=== PATIENT | male | born 1945 | race Caucasian/White ===

== ENCOUNTER 2022-10-19 12:52 | Outpatient (CLI) | payer MEDICARE, SELFPAY | END 2022-10-19 12:53 | disposition home or self-care (01) | LOC: NFLDUCREF 12:53 | PROVIDERS: PCP Family Medicine; Visit Provider Registered Nurse | DX: R19.7 Diarrhea, unspecified (principal) | CPT/HCPCS: 87493 ==

== ENCOUNTER 2023-12-14 08:43 | Outpatient (CLI) | payer MEDICARE, SELFPAY ==
--- OUTSIDE RECORDS SUMMARY | 2023-12-14 08:47 | XMS_ITS | Encounter Summary ---
[facility] Address [address] [place] [address] Care Team Providers Care Yard Laborer Name Role Phone No Primary/Referring, Phy Primary Care Provider Unavailable Encounter Details Date Type Department Care Team (Latest Contact Info) Description 11/07/2011 Correspondence None Inactive, Provider ABN Social History Tobacco Use Types Packs/Day Years Used Date Smoking Tobacco: Never Assessed Sex and Gender Information Value Date Recorded Sex Assigned at Not on file Gender Identity Not on file Sexual Orientation Not on file documented as of this encounter Progress Notes * Inactive, Provider - 11/07/2011 12:00 AM CDT documented in this encounter Plan of Treatment Not on file documented as of this encounter Visit Diagnoses Not on filedocumented in this encounter Care Teams Yard Laborer Relationship Specialty Start Date End Date No Primary/Referring, Phy PCP - General 02/27/14 documented as of this encounter
--- OUTSIDE RECORDS SUMMARY | 2023-12-14 08:47 | XMS_ITS | Data Portability ---
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 [email or web address] Not available 09/03/2022 12:02:03 10/26/2022 10/26/2022 This is a 76 year old male who is here for the evaluation and management of benign prostatic hyperplasia with lower urinary tract symptoms. [email or web address] Not available 10/26/2022 11:40:32 12/30/2022 12/30/2022 This is a 76 year old male who is here for the evaluation and management of benign prostatic hyperplasia with lower urinary tract symptoms. [email or web address] Not available 12/30/2022 09:22:14 Plan of Treatment Reminders Order Date Submit Date Provider Last Modified By Organization Details Last Modified Time Details Appointments None recorded. Lab urinalysis, dipstick 2022 023 [facility], [address], [address], [address], 12:32:19 urinalysis, dipstick 2022 023 [facility], [address], [address], [place], [address], 3 11:21:18 urinalysis, dipstick 2022 023 [facility], [address], [address], [place], [address], 3 09:18:11 Referral None recorded. Procedures None recorded. Surgeries None recorded. Imaging None recorded. Medication Orders doxazosin ER 4 mg tablet,exte nded release 24 hr 2022 023 [facility] #[id number], [address] [place], [address], 3 11:17:25 finasteride 5 mg tablet 2022 023 [id number]/Pharmacy #[id number], [address] [place], [address], 3 13:56:17 Patient TargetsNo targets recorded. Patient Instructions Encounter Date Encounter Id Patient Instructions Last Modified By Organization Details Last Modified Time 09/03/2022 [id number] benign prostatic hyperplasia with lower urinary tract symptoms: - We discussed trying a different medication for BPH, and he is open to trying this in hopes it can prevent a future procedure - Rx sent to pharmacy for Doxazosin ER 4 mg. Side effects were discussed in detail. Potential side effects include retrograde ejaculation - I will see him back in 4-6 weeks for a medication check - We discussed lifestyle modifications to improve bladder health: 1. Avoiding bladder irritants such as spicy food, caffeine, and alcohol 2. Drinking enough water to stay hydrated, but to not drink in excess of this 3. Manage any existing constipation. 4. Voiding on a schedule of about every 3 hours 5. Fluid restriction 2-3 hours before bed iván Not available 09/03/2022 12:52:39 10/26/2022 [id number] benign prostatic hyperplasia with lower urinary tract symptoms: - He will resume tamsulosin. reviewed potential side effects with him. Potential side effects include retrograde ejaculation, intraoperative floppy iris syndrome, dizziness, rhinitis. - We reviewed lifestyle modifications to improve bladder health: 1. Avoiding bladder irritants such as spicy food, caffeine, and alcohol 2. Drinking enough water to stay hydrated, but to not drink in excess of this 3. Manage any existing constipation. 4. Voiding on a schedule of about every 3 hours 5. Fluid restriction 2-3 hours before bed - He would also like to consider adjunct medication to take with the tamsulosin. We discussed starting finasteride 5 mg daily. Potential side effects include abnormal ejaculation, decreased ejaculatory volume, fatigue. I have recommended that he resume tamsulosin, and after two weeks, he can start this medication. He expresses understanding - I will see back in 1 month iván Not available 10/26/2022 11:42:48 12/30/2022 [id number] benign prostatic hyperplasia with lower urinary tract symptoms: - We discussed his options of continuing on current plan and giving the finasteride more time to work, starting an OAB medication to help with urgency, vs. possible prostate procedure - He would like to give his current medication more time to work, which I think is reasonable - Will check his urine today to ensure he does not have an infection due to his worsening urgency - We discussed lifestyle modifications to improve bladder health: 1. Avoiding bladder irritants such as spicy food, caffeine, and alcohol 2. Drinking enough water to stay hydrated, but to not drink in excess of this 3. Manage any existing constipation. 4. Voiding on a schedule of about every 3 hours 5. Fluid restriction 2-3 hours before bed - I will see him back in 4 months to see how his symptoms are doing. If he continues to struggle with urgency, we can reconsider OAB medication [email or web address] Not available 12/30/2022 09:24:02 Reason for Referral None Reported. Results Created Date Observation Date Name Description Value Unit Range Abnormal Flag LastModifiedBy Organization Detail LastModifiedTime 09/04/1909/03/2022 UA DIP CS STATU S color -advantus YELLOW yellow Not Available [facility] [address] [facility] [address], [place], [address], 09/03/2022 12:32:19 09/04/19 23 09/03/2022 UA DIP CS STATU S appearance -advantus CLEAR clear Not Available [facility] [address] [facility] [address], [place], [address], 09/03/2022 12:32:19 09/04/19 23 09/03/2022 UA DIP CS STATU S glucose -advantus NEGATI VE mg/dL negati ve Not Available [facility] [address] [facility] [address], [place], [address], 09/03/2022 12:32:19 09/04/19 23 09/03/2022 UA DIP CS STATU S bilirubin -advantus NEGATI VE negati ve Not Available [facility] [address] [facility] [address], [place], [address], 09/03/2022 12:32:19 09/04/19 23 09/03/2022 UA DIP CS STATU S ketones -advantus NEGATI VE mg/dL negati ve Not Available [facility] [address] [place] [address] [address], [place], [address], 09/03/2022 12:32:19 09/04/19 23 09/03/2022 UA DIP CS STATU S sp. gravity -advantus 1.020 1.010- 1.025 Not Available [facility] [address] [facility] [address], [place], [address], 09/03/2022 12:32:19 09/04/19 23 09/03/2022 UA DIP CS STATU S pH -advantus 7.0 5.0-8. 0 Not Available [facility] [address] [facility] [address], [place], [address], 09/03/2022 12:32:19 09/04/19 23 09/03/2022 UA DIP CS STATU S protein -advantus NEGATI VE mg/dL negati ve Not Available [facility] [address] [facility] [address], [place], [address], 09/03/2022 12:32:19 09/04/19 23 09/03/2022 UA DIP CS STATU S urobilinogen -advantus 0.2 0.2 E.U./d L Not Available [facility] [address] [facility] [address], [place], [address], 09/03/2022 12:32:19 09/04/19 23 09/03/2022 UA DIP CS STATU S nitrites -advantus NEGATI VE negati ve Not Available [facility] [address] [place] [address] [address], [place], [address], 09/03/2022 12:32:19 09/04/19 23 09/03/2022 UA DIP CS STATU S blood -advantus NEGATI VE negati ve Not Available [facility] [address] [place] [address] [address], [place], [address], 09/03/2022 12:32:19 09/04/19 23 09/03/2022 UA DIP CS STATU S leukocytes -advantus NEGATI VE negati ve Not Available [facility] [address] [place] [address] [address], [place], [address], 09/03/2022 12:32:19 09/04/19 23 09/03/2022 UA DIP CS STATU S performed by DEYVI Jose Not Available [email or web address] [address] [place] [address] [address], [place], [address], 09/03/2022 12:32:19 09/04/19 23 09/03/2022 UA DIP CS STATU S total urine volume (mL) 85 /mL Not Available [facility] [address] [place] [address] [address], [place], [address], 09/03/2022 12:32:19 10/27/19 23 10/26/2022 UA WITHO UT MICRO - CS URISC AN blood - uriscan NEGATI VE negati ve Not Available [facility] [address] [place] [address] [address], [place], [address], 10/26/2022 11:21:18 10/27/19 23 10/26/2022 UA WITHO UT MICRO - CS URISC AN bilirubin - uriscan NEGATI VE mg/dL negati ve Not Available [facility] [address] [facility] [address], [place], [address], 10/26/2022 11:21:18 10/27/19 23 10/26/2022 UA WITHO UT MICRO - CS URISC AN urobilinogen - uriscan NORMAL mg/dL normal Not Available [facility] [address] [place] [address] [address], [place], [address], 10/26/2022 11:21:18 10/27/19 23 10/26/2022 UA WITHO UT MICRO - CS URISC AN ketones - uriscan NEGATI VE mg/dL negati ve Not Available [facility] [address] [place] [address] [address], [place], [address], 10/26/2022 11:21:18 10/27/19 23 10/26/2022 UA WITHO UT MICRO - CS URISC AN protein - uriscan NEGATI VE mg/dL negati ve Not Available [facility] [address] [place] [address] [address], [place], [address], 10/26/2022 11:21:18 10/27/19 23 10/26/2022 UA WITHO UT MICRO - CS URISC AN nitrites - uriscan NEGATI VE negati ve Not Available [facility] [address] [place] [address], [place], [address], 10/26/2022 11:21:18 10/27/19 23 10/26/2022 UA WITHO UT MICRO - CS URISC AN glucose - uriscan NEGATI VE mg/dL negati ve Not Available [facility] [address] [place] [address] [address], [place], [address], 10/26/2022 11:21:18 10/27/19 23 10/26/2022 UA WITHO UT MICRO - CS URISC AN pH - uriscan 5.50 5.00-9 .00 Not Available [facility] [address] [facility] [address], [place], [address], 10/26/2022 11:21:18 10/27/19 23 10/26/2022 UA WITHO UT MICRO - CS URISC AN sp. gravity - uriscan 1.03 1.01-1 .03 Not Available [facility] [address] [place] [address] [address], [place], [address], 10/26/2022 11:21:18 10/27/19 23 10/26/2022 UA WITHO UT MICRO - CS URISC AN leukocytes - uriscan NEGATI VE negati ve Not Available [facility] [address] [place] [address] [address], [place], [address], 10/26/2022 11:21:18 10/27/19 23 10/26/2022 UA WITHO UT MICRO - CS URISC AN color - uriscan YELLOW Not Available [facility] [address] [place] [address] [address], [place], [address], 10/26/2022 11:21:18 10/27/19 23 10/26/2022 UA WITHO UT MICRO - CS URISC AN clarity - uriscan CLEAR Not Available [facility] [address] [place] [address] [address], [place], [address], 10/26/2022 11:21:18 10/27/19 23 10/26/2022 UA WITHO UT MICRO - CS URISC AN total urine volume (mL) 40 /mL Not Available [facility] [address] [place] [address] [address], [place], [address], 10/26/2022 11:21:18 12/31/19 23 12/30/2022 UA WITHO UT MICRO - CS URISC AN blood - uriscan NEGATI VE negati ve Not Available [facility] [address] [place] [address] [address], [place], [address], 12/30/2022 09:18:10 12/31/19 23 12/30/2022 UA WITHO UT MICRO - CS URISC AN bilirubin - uriscan NEGATI VE mg/dL negati ve Not Available [facility] [address] [facility] [address], [place], [address], 12/30/2022 09:18:10 12/31/19 23 12/30/2022 UA WITHO UT MICRO - CS URISC AN urobilinogen - uriscan NORMAL mg/dL normal Not Available [facility] [address] [facility] [address], [place], [address], 12/30/2022 09:18:10 12/31/19 23 12/30/2022 UA WITHO UT MICRO - CS URISC AN ketones - uriscan NEGATI VE mg/dL negati ve Not Available [facility] [address] [facility] [address], [place], [address], 12/30/2022 09:18:10 12/31/19 23 12/30/2022 UA WITHO UT MICRO - CS URISC AN protein - uriscan NEGATI VE mg/dL negati ve Not Available [facility] [address] [facility] [address], [place], [address], 12/30/2022 09:18:10 12/31/19 23 12/30/2022 UA WITHO UT MICRO - CS URISC AN nitrites - uriscan NEGATI VE negati ve Not Available [facility] [address] [facility] [address], [place], [address], 12/30/2022 09:18:10 12/31/19 23 12/30/2022 UA WITHO UT MICRO - CS URISC AN glucose - uriscan NEGATI VE mg/dL negati ve Not Available [facility] [address] [facility] [address], [place], [address], 12/30/2022 09:18:10 07/12/12/30/2022 UA WITHO UT MICRO - CS URISC AN pH - uriscan 8.00 5.00-9 .00 Not Available [facility] [address] [place] [address] [address], [place], [address], 12/30/2022 09:18:10 12/31/19 23 12/30/2022 UA WITHO UT MICRO - CS URISC AN sp. gravity - uriscan 1.01 1.01-1 .03 Not Available [facility] [address] [place] [address], [place], [address], 12/30/2022 09:18:10 12/31/1912/30/2022 UA WITHO UT MICRO - CS URISC AN leukocytes - uriscan NEGATI VE negati ve Not Available [facility] [address] [place] [address], [place], [address], 12/30/2022 09:18:10 12/31/1912/30/2022 UA WITHO UT MICRO - CS URISC AN color - uriscan YELLOW lt. yellow ;yello w Not Available [facility] [address] [place] [address], [place], [address], 12/30/2022 09:18:10 12/31/1912/30/2022 UA WITHO UT MICRO - CS URISC AN clarity - uriscan CLEAR clear Not Available [facility] [address] [place] [address] [address], [place], [address], 12/30/2022 09:18:10 12/31/1912/30/2022 UA WITHO UT MICRO - CS URISC AN total urine volume (mL) 60 /mL Not Available [facility] [address] [place] [address] [address], [place], [address], 12/30/2022 09:18:10 Result Notes Documentation Provider Name and Address Organization Details Recorded Time Urinalysis, Dipstick : General Interpretation TOM Zavala [address] [facility] [address], [place], [address], [place] [facility] 10/26/2022 11:56:26 Problems No Known Problems Procedures Surgical History Date Name Laterality Status Provider Name and Address Organization Details Recorded Time 3 Bladder Scan completed Maryurila nena Watermanmey erickson [facility] 12/30/2022 09:03:17 3 Bladder Scan completed Karis Hardy erickson [facility] 10/26/2022 11:17:17 3 Bladder Scan completed Maryuri Cheo erickson [facility] 09/03/2022 11:50:07 Imaging Results None recorded. Procedure Notes None recorded. Medical Equipment None Reported. Allergies Allergen ID Allergen Name Allergen Category Reaction Reaction Severity Criticality Documentation Date Start Date Code Code System Note Provider Name and Address Organization Details Recorded Time 290795 doxazosin medicatio n diarrhea severe Not available 10/26/2022 73261 RxNorm Not Available [facility] 14:39:13 Medications Name Sig Start Date Stop Date Status Note LastModified by Organization Details LastModified Time tamsulosi n 0.4 mg capsule TAKE 1 CAPSULE (0.4 MG) BY MOUTH ONCE DAILY AFTER A MEAL. 09/03 completed HN: Patient reports no longer taking Not Available Not Available Not Available doxazosin 4 mg tablet TAKE 1 TABLET BY MOUTH EVERY DAY active Not Available Not Available No t Available finasteri de 5 mg tablet TAKE 1 TABLET BY MOUTH EVERY DAY active Not Available Not Available No t Available Restasis 0.05 % eye drops in a dropperet te active Not Available Not Available Not Available doxazosin ER 4 mg tablet,ex tended release 24 hr Take 1 tablet every day by oral route. 10/26 completed Not Available Not Available Not Available silodosin 8 mg capsule active Not Available Not Available Not Available Xiidra 5 % eye drops in a dropperet te active Not Available Not Available Not Available Vitals Date Recorded Body mass index (BMI) Body height Provider Name and Address Organization Details Last Updated DateTime 09/03/2022 19.9 kg/m2 175.26 cm Not Available Health Note 11:30:50 Date Recorded Body weight Provider Name an d Address Organization Details Last Updated DateTime 09/03/2022 21688.97 g Maryuri Grider [facility] 09/03/2022 11:42:57 Date Recorded Body height Body mass index (BMI) Body weight Provider Name and Address Organization Details Last Updated DateTime 10/26/2022 175.26 cm 34.7 kg/m2 358418.21 g Karis Dash [facility] 10/26/2022 11:14:16 Date Recorded Body weight Provider Name an d Address Organization Details Last Updated DateTime 12/30/2022 147960.61 anjali Grider [facility] 12/30/2022 08:54:31 Date Recorded Body height Body mass index (BMI) Provider Name and Address Organization Details Last Updated DateTime 12/30/2022 175.26 cm 34.6 kg/m2 Not Available Health Note 08:48:42 Social History Question Answer Notes LastModified by Organizat ion Details LastModified Time Tobacco Smoking Status Former Smoker Not Available Health Note 12/26/2022 13:56:14 What Is Your Level Of Alcohol Consumption? Occasional [email or web address] Information not available 12/26/2022 What Is Your Level Of Caffeine Consumption? Moderate [email or web address] Information not available 12/26/2022 How Much Tobacco Do You Chew? None [email or web address] Information not available 12/26/2022 Are You Currently Employed? No Information not available 09/03/2022 Do You Or Have You Ever Used E-cigarettes Or Vape? Never Used Electronic Cigarettes [email or web address] Information not available 12/26/2022 When Did You Quit Smoking? 16+yearssincel astcigarette Information not available 12/29/2022 Race White Information no t available 09/03/2022 Ethnicity Not /Latin o Information not available 09/03/2022 Preferred Language Mongolian Information not available 09/03/2022 Recreational Drug Use No Information not available 09/03/2022 Could You Be ? No Information not available 09/03/2022 What Was The Date Of Your Most Recent Tobacco Screening? 12/30/2022 [email or web address] Information not available 12/26/2022 Have You Ever Been Counseled For Unhealthy Alcohol Use? No Information not available 12/29/2022 What Is Your Relationship Status? [email or web address] Information not available 12/26/2022 Are You Sexually Active? No [email or web address] Information not available 12/26/2022 Do You Or Have You Ever Used Smokeless Tobacco? Never Used Smokeless Tobacco [email or web address] Information not available 12/26/2022 Do You Use Any Illicit Or Recreational Drugs? No [email or web address] Information not available 12/26/2022 Has Tobacco Cessation Counseling Been Provided? No Information not available 09/03/2022 How Many Years Have You Smoked Tobacco? 20 [email or web address] Information not available 12/26/2022 Do You Or Have You Ever Used Any Other Forms Of Tobacco Or Nicotine? No Information not available 09/03/2022 How Many Days In The Past Year Have You Consumed 5 Or More Drinks? 0 [email or web address] Information no t available 12/26/2022 Sex: Unknown Functional Status None recorded. Mental Status None recorded. Family History Relationship Description Onset Age of this Age Resolved Age Notes Father No current problems or disability Mother No current problems or disability Medical History Condition Response Other N High Blood Pressure N Kidney Stones N Lung Disease N Depression N GERD/Acid Reflux N Sexually Transmitted Infection N Cancer N High Cholesterol N Diabetes N Bleeding Disorder N Heart Disease N Immunizations Vaccine Type Date Status Provider Name and Address Organization Details Recorded Time SARS-COV-2 (COVID-19) vaccine, UNSPECIFIED 08/19/2021 completed Maryuri erickson [facility] 12/30/2022 08:54:36 SARS-COV-2 (COVID-19) vaccine, UNSPECIFIED 06/21/2021 [facility] 12/30/2022 08:54:36 Past Encounters Encounter ID Performer Location Encounter Start Date Encounter Closed Date Diagnosis/Indication Diagnosis SNOMED-CT Code [id number] TOM Gentile [address] [address] 09/03/2022 11:30:29 09/03/2022 13:48:53 Lower urinary tract symptoms due to benign prostatic hypertrophy [id number] TOM Gentile [address] [facility] [place] [address] 10/26/2022 11:07:31 10/26/2022 11:43:53 Lower urinary tract symptoms due to benign prostatic hypertrophy [id number] TOM GentileRandolph dbury [address] [facility] [place] [address] 12/30/2022 08:47:29 12/30/2022 09:25:20 Lower urinary tract symptoms due to benign prostatic hypertrophy [id number] Health Concerns Section Related Observation LastModified by Organization Detai ls LastModified Time None Recorded Concern Status LastModified by Organization Details LastModified Time None Recorded Advance Directives Directive None Recorded Payers Encounter Date Sequence Insurance Name Policy Number Policy Luis Covered Member ID Luis Member ID Guarantor Name 09/03/2022 1 [employer] (MEDICARE REPLACEMENT PPO) [id number] Geo Ashtonmarcella [id number] Geo Barrera 10/26/2022 1 [employer] (MEDICARE REPLACEMENT PPO) [id number] Geo Barrera [id number] Geo Barrera 12/30/2022 1 [employer] (MEDICARE REPLACEMENT PPO) [id number] Geo Barrera [id number] Geo Barrera Notes Date Note Type Note Provider Name and Address Organization Details Recorded Time 09/03/2022 text/html HPI Notes: This is a 76 year old male who is here for the evaluation and management of benign prostatic hyperplasia with lower urinary tract symptoms. Symptoms have been present for several years, worsening over the last year His most bothersome symptom is slow stream and urinary frequency He denies gross hematuria. There is not history of recurrent urinary tract infections. There is not history of urinary retention. Current medical therapy includes nothing Previously on tamsulosin 0.4mg daily, he stopped this since it was not helping. His symptoms have not changed without it He is participating in prostate cancer screening. His most recent PSA was 2.65 ng/mL (09/12/2021) There is not family history of prostate cancer. TOM Zavala [address] [place] [address],[address], [place], [address], [facility] 09/03/2022 12:52:52 10/26/2022 text/html HPI Notes: This is a 76 year old male who is here for the evaluation and management of benign prostatic hyperplasia with lower urinary tract symptoms. Symptoms have been present for several years, worsening over the last year His most bothersome symptom is slow stream and urinary frequency He denies gross hematuria. There is not history of recurrent urinary tract infections. There is not history of urinary retention. Current medical therapy includes doxazosin, which he was started on at his last appointment. He experienced diarrhea with this, so discontinued. Previously on tamsulosin 0.4mg daily, he stopped prior to our last appointment since he did not see a benefit. He states that looking back, this medication did help, and would like to resume it He is participating in prostate cancer screening. His most recent PSA was 2.65 ng/mL (09/12/2021) There is not family history of prostate cancer. TOM Zavala [address] [place] [address],[address], [address], [facility] 10/26/2022 11:43:03 12/30/2022 text/html HPI Notes: This is a 76 year old male who is here for the evaluation and management of benign prostatic hyperplasia with lower urinary tract symptoms. Symptoms have been present for several years, worsening over the last year His most bothersome symptom is slow stream and urinary frequency He denies gross hematuria. There is not history of recurrent urinary tract infections. There is not history of urinary retention. Current medical therapy includes tamsulosin 0.4 mg daily, and finasteride 5 mg daily, started at his last appointment States his stream is stronger, but he has been struggling with urgency He is participating in prostate cancer screening. His most recent PSA was 2.65 ng/mL (09/12/2021) There is not family history of prostate cancer. TOM Zavala [address] [place] [address],[address], [id number], [facility] 12/30/2022 09:24:22
--- OUTSIDE RECORDS SUMMARY | 2023-12-14 08:47 | XMS_ITS | Clinical Summary ---
Author Organization [email or web address] [facility] Address [place], [place] [address] Care Team Providers Care Maternity Floor Supervisor Name Role Phone Gretchen Oneal DO Primary Care Provider [phone] Allergies Active Allergy Reactions Criticality Noted Date Comments Diphtheria-Tetanus Toxoids Ped Other - Describe In Comment Field 11/12/2011 Numbness Doxazosin Diarrhea High 10/21/2023 Medications Medication Sig Dispensed Refills Start Date End Date Status meloxicam 15 mg tabletIndications :Hip pain, right Take 1 Tablet (15 mg) by mouth once daily. 30 Tablet 10/21/2023 11/20/2023 Additional Information Patient not taking.Reported on 11/02/2023 Active Problems Problem Noted Date Diagnosed Date Low back pain 09/12/2021 Spondylolisthesis at L4-L5 level 07/15/2020 Benign localized hyperplasia of prostate 019 Mild chronic obstructive pulmonary disease 01/09 Overview: Disease Lung Obstructive Chronic (COPD) Mild Erectile dysfunction 01/09/2015 Obesity, 11/19/2011 vitamin D deficiency 11/12/2011 Low testosterone 11/12/2011 Decreased libido 08/10/2011 Routine health maintenance 08/10/2011 Encounters Date Type Department Care Team Description 12/14/2023 Travel 12/03/2023 9:05 AM CDT Office Visit [address] [address] John Alas MD Musculoskeletal Problem (Follow-up Lumbar Spine MRI) 12/03/2023 Travel 11/30/2023 Telephone [facility] [address] [place] [address] John Alas MD Results (MRI back ) 11/25/2023 7:15 AM CDT Ancillary Procedure [facility] [address] [place] [address] 11/25/2023 Travel 11/08/2023 Nurse Triage [facility] [address] [place] [address] John Alas MD Back Pain 11/03/2023 7:30 AM CDT Procedure Only [address] [address] Lacey Ahmadi L Ac Acupuncture (Initial treatment.) 11/02/2023 7:45 AM CDT Ancillary Procedure [address] [address] 11/02/2023 7:30 AM CDT Ancillary Procedure [address] [address] 11/02/2023 7:00 AM CDT Office Visit [address] [address] John Alas MD Musculoskeletal Problem (Follow-up Low Back Pain on RIGHT side) 11/02/2023 Travel 10/26/2023 1:25 PM CDT Office Visit [address] [address] John Alas MD Musculoskeletal Problem (Consultation RIGHT Hip pain x 2 years getting gradually worse) 10/26/2023 Travel 10/21/2023 2:30 PM CDT Ancillary Procedure [address] [address] 10/21/2023 2:05 PM CDT Office Visit [address] [address] Gretchen Oneal, Hip Pain/problem (X2 years - RIGHT hip - hurting more - using aleve in AM and PM ) 10/21/2023 Travel from Last 3 Months Immunizations Name Administration Dates Next Due Influenza, High-dose Inactivated 020,03/24/2019,04/22/2018,2016,04/25/2015 Influenza, High-dose Quadriv alent Inactivated 03/26/2022,04/10/2021 Pneumococcal Poly,23-Valent (Pneumovax) 04/27/2013,04/27/2005 Pneumococcal conj 13-Valent (Prevnar 13) 04/25/2015 Zoster (Shingrix-RZV, recombinant) 05/29/2019, Family History Medical History Relation Name Comments Lung cancer Brother 1 Heart attack Brother 2 Lung cancer Father Alzheimer's disease Mother Relation Name Status Comments Brother 1 Brother 2 Father Mother Sister Social History Tobacco Use Types Packs/Day Years Used Date Smoking Tobacco: Never Smokeless Tobacco: Never Tobacco Cessation:Counseling Given: Yes Alcohol Use Standard Drinks/Week Comments Yes 0 (1 standard drink = 0.6 oz pur e alcohol) PHQ-2 Answer Date Recorded PHQ-2 TOTAL SCORE 0 09/12/2021 Social Connections Answer Date Recorded Frequency of Communication with Friends and Fami ly 0 10/21/2023 Financial Resource Strain Answer Date R ecorded Difficulty of Paying Living Expenses 3 10/21/2023 Difficulty of Paying Living Expenses Not on file 10/21/2023 Food Insecurity Answer Date Recorded Worried About Running Out of Food in the Last Ye ar 1 10/21/2023 Transportation Needs Answer Date Record ed Lack of Transportation (Medical) 1 10/21/2023 Housing Stability Answer Date Recorded Unable to Pay for Housing in the Last Year 1 10/21/2023 Sex and Gender Information Value Date Recorded Sex Assigned at Not on file Gender Identity Not on file Sexual Orientation Not on file Obstetrics History Last Filed Vital Signs Vital Sign Reading Time Taken Comments Blood Pressure 157/78 12/03/2023 9:42 AM CDT Pulse 69 12/03/2023 9:42 AM CDT Temperature 36.6 ??C (97.8 ??F) 10/03/2020 7:45 AM CD T Respiratory Rate 14 08/17/2023 8:55 AM CRNP Oxygen Saturation 95% 12/03/2023 9:42 AM CDT Inhaled Oxygen Concentration - - Weight 111.7 kg (246 lb 3.2 oz) 12/03/2023 8:55 AM CDT Height 173.5 cm (5' 8.31) 10/21/2023 2:05 PM CD T Body Mass Index 37.1 10/21/2023 2:05 PM CDT Plan of Treatment Upcoming Encounters Date Type Department Care Team (Late st Contact Info) Description 12/14/2023 9:40 AM CDT Office Visit [facility] [address] [place] [address] Ciro Bynum MD [address] [place] [address] Arrived 01/11/2024 8:15 AM CDT Office Visit [facility] [address] [place] [address] John Alas MD [address] [place] [address] Health Maintenance Due Date Last Done Comments Medicare Wellness for age 65+ 09/13/2022 09/12/2021, 11/19/2011 Depression screening for age 12+ 09/15/2022 09/15/2021, 09/12/2021, 08/12/2020 COVID-19 vaccine series ( season) 2023 05/23/2021, 09/14/2020, 08/24/2020 Influenza for age 65+ 02/20/2024 03/26/2022 , 04/10/2021, 03/28/2020, Additional history exists BMI (ht and wt on same day) for age 18+ 10/20/2024 10/21/2023, 10/23/2022, 09/12/2021 Pneumococcal series for age 65+ Completed 04/25/2015, 04/27/2013, 04/27/2005 Zoster (shingles) series for age 50+ Completed 05/29/2019, 03/27/2019 Tdap Discontinued Tetanus booster Discontinued Procedures Procedure Name Priority Date/Time Associated Diagnosis Comments AMB EPIDURAL STEROID INJECTION Routine 12/14/2023 8:21 AM CDT Chronic right-sided low back pain without sciatica MR SPINE LUMBAR WO Routine 11/25/2023 7: 51 AM CDT Right flank pain Chronic right-sided low back pain without sciatica XR SPINE THORACIC 3 VIEWS Routine 11/02/2023 7:44 AM CDT Right flank pain XR SPINE LUMBAR 2 VIEWS Routine 11/02/2023 7:44 AM CDT Right flank pain XR HIP 1 VIEW W PELVIS RIGHT Routine 10/21/2023 2:43 PM CDT Hip pain, right from Last 3 Months Results * MR SPINE LUMBAR WO (11/25/2023 7:51 AM CDT) Anatomical Region Laterality Modality Spine, LUMBAR SPINE Magnetic Res onance 11/25/2023 12:5 3 PM CDT Impressions 11/25/2023 12:53 PM CDT 1. Degenerative grade 1 anterolisthesis of L3 on L4 and L4 on L5. 2. Otherwise normal alignment. No fractures. 3. Lumbar spondylosis. 4. At L3-4, moderate to severe narrowing of the spinal canal. Potential impingement of the traversing L4 nerve roots. Mild narrowing of the bilateral neural foramina 5. At L4-5, left subarticular recess narrowing with potential impingement of the traversing left L5 nerve root. Moderate right and mild left neural foraminal narrowing. 6. At L5-S1, mild narrowing of the bilateral neural foramina Dictated by Bob Ortiz MD @ 11/25/2023 12:53:01 PM (Electronically Signed) Narrative 11/25/2023 12:53 PM CDT For Patients: ??As a result of the 21st Century Cures Act, medical imaging exams and procedure reports are released immediately into your electronic medical record. ??You may view this report before your referring provider. ??If you have questions, please contact your health care provider. INDICATION: Right flank pain. COMPARISON: 07/01/2020. TECHNIQUE: Sagittal T1, T2, and STIR sequences. Axial T1 and T2 weighted sequences. FINDINGS: Degenerative grade 1 anterolisthesis of L3 on L4 measures approximately 4 mm. Grade 1 anterolisthesis of L4 on L5 measures approximately 6 mm. No fractures. No vertebral body loss of height. No ligamentous injury. No suspicious osseous lesions. Normal conus terminates at L1. T12-L1 L1-2 L2-3: Disc degeneration. No narrowing of spinal canal. No neural foraminal narrowing. L3-4: Grade 1 anterolisthesis. Disc degeneration and posterior disc bulge. Combined with facet arthropathy, there is moderate severe narrowing of spinal canal. Bilateral subarticular recess narrowing and impingement of the traversing L4 nerve roots. Mild narrowing of the bilateral foramina. Mild facet arthropathy. Prominent bilateral facet joint effusions. L4-5: Grade 1 anterolisthesis. Disc degeneration and unroofed posterior disc bulge. No narrowing of the spinal canal. Focal narrowing of the left subarticular recess potential impingement of the traversing left L5 nerve root. Moderate right and mild left neural foraminal narrowing. L5-S1: Stable advanced disc degeneration. Diffuse disc bulge and endplate osteophytic ridging. No narrowing of the spinal canal. No impingement of the traversing S1 nerve roots. Mild narrowing of bilateral foramina. Degenerative changes of the SI joints. Procedure Note Bob Ortiz MD, PhD - 11/25/2023 For Patients: As a result of the Century Cures Act, medical imagingexams and procedure reports are released immediately into your electronicmedical record. You may view this report before your referring provider.If you have questions, please contact your health care provider. INDICATION: Right flank pain. COMPARISON: 07/01/2020. TECHNIQUE: Sagittal T1, T2, and STIR sequences. Axial T1 and T2 weighted sequences. FINDINGS: Degenerative grade 1 anterolisthesis of L3 on L4 measures approximately 4mm. Grade 1 anterolisthesis of L4 on L5 measures approximately 6 mm. Nofractures. No vertebral body loss of height. No ligamentous injury. Nosuspicious osseous lesions. Normal conus terminates at L1. T12-L1 L1-2 L2-3: Disc degeneration. No narrowing of spinal canal. Noneural foraminal narrowing. L3-4: Grade 1 anterolisthesis. Disc degeneration and posterior disc bulge.Combined with facet arthropathy, there is moderate severe narrowing ofspinal canal. Bilateral subarticular recess narrowing and impingement ofthe traversing L4 nerve roots. Mild narrowing of the bilateral foramina.Mild facet arthropathy. Prominent bilateral facet joint effusions. L4-5: Grade 1 anterolisthesis. Disc degeneration and unroofed posteriordisc bulge. No narrowing of the spinal canal. Focal narrowing of the leftsubarticular recess potential impingement of the traversing left L5 nerveroot. Moderate right and mild left neural foraminal narrowing. L5-S1: Stable advanced disc degeneration. Diffuse disc bulge and endplateosteophytic ridging. No narrowing of the spinal canal. No impingement ofthe traversing S1 nerve roots. Mild narrowing of bilateral foramina. Degenerative changes of the SI joints. IMPRESSION: 1. Degenerative grade 1 anterolisthesis of L3 on L4 and L4 on L5. 2. Otherwise normal alignment. No fractures. 3. Lumbar spondylosis. 4. At L3-4, moderate to severe narrowing of the spinal canal. Potentialimpingement of the traversing L4 nerve roots. Mild narrowing of thebilateral neural foramina 5. At L4-5, left subarticular recess narrowing with potential impingementof the traversing left L5 nerve root. Moderate right and mild left neuralforaminal narrowing. 6. At L5-S1, mild narrowing of the bilateral neural foramina Dictated by Bob Ortiz MD @ 11/25/2023 12:53:01 PM (Electronically Signed) John Alas MD MR * XR SPINE THORACIC 3 VIEWS (11/02/2023 7:44 AM CDT) Anatomical Region Laterality Modality Spine, THORACIC SPINE Computed R adiography 11/02/2023 3:19 PM CDT Impressions 11/02/2023 3:19 PM CDT Multilevel discogenic spurring. Dictated by Jesse Davis MD @ 11/02/2023 3:19:04 PM (Electronically Signed) Narrative 11/02/2023 3:19 PM CDT For Patients: ??As a result of the Century Cures Act, medical imaging exams and procedure reports are released immediately into your electronic medical record. ??You may view this report before your referring provider. ??If you have questions, please contact your health care provider. INDICATION: Right flank pain TECHNIQUE: 3-view thoracic spine. COMPARISON: none FINDINGS: Multilevel discogenic spurring throughout the lower thoracic spine. Slight rightward curvature. No fracture. No pleural effusion. Procedure Note Jesse Davis MD - 11/02/2023 For Patients: As a result of the Cures Act, medical imagingexams and procedure reports are released immediately into your electronicmedical record. You may view this report before your referring provider.If you have questions, please contact your health care provider. INDICATION: Right flank pain TECHNIQUE: 3-view thoracic spine. COMPARISON: none FINDINGS: Multilevel discogenic spurring throughout the lower thoracic spine. Slightrightward curvature. No fracture. No pleural effusion. IMPRESSION: Multilevel discogenic spurring. Dictated by Jesse Davis MD @ 11/02/2023 3:19:04 PM (Electronically Signed) John Alas MD GENERAL IMAGING * XR SPINE LUMBAR 2 VIEWS (11/02/2023 7:44 AM CDT) Anatomical Region Laterality Modality LUMBAR SPINE Computed Radiogr aphy 11/02/2023 3:09 PM CDT Impressions 11/02/2023 3:09 PM CDT Multilevel degenerative disc disease and facet degeneration L3 through S1 with degenerative spondylolisthesis of L3 on L4 and L4 on L5. Dictated by Jesse Davis MD @ 11/02/2023 3:09:44 PM (Electronically Signed) Narrative 11/02/2023 3:09 PM CDT For Patients: ??As a result of the Cures Act, medical imaging exams and procedure reports are released immediately into your electronic medical record. ??You may view this report before your referring provider. ??If you have questions, please contact your health care provider. INDICATION: Right flank pain TECHNIQUE: 2-view lumbar spine. COMPARISON: none FINDINGS: Grade 1 degenerative spondylolisthesis L3 on L4 and L4 on L5. No fracture. Facet degeneration mid and lower lumbar spine. Vascular calcifications. Mild leftward curvature lumbar spine. Disc space narrowing L3 through S1 Procedure Note Jesse Davis MD - 11/02/2023 For Patients: As a result of the Cures Act, medical imagingexams and procedure reports are released immediately into your electronicmedical record. You may view this report before your referring provider.If you have questions, please contact your health care provider. INDICATION: Right flank pain TECHNIQUE: 2-view lumbar spine. COMPARISON: none FINDINGS: Grade 1 degenerative spondylolisthesis L3 on L4 and L4 on L5. No fracture.Facet degeneration mid and lower lumbar spine. Vascular calcifications.Mild leftward curvature lumbar spine. Disc space narrowing L3 through S1 IMPRESSION: Multilevel degenerative disc disease and facet degeneration L3 through S1with degenerative spondylolisthesis of L3 on L4 and L4 on L5. Dictated by Jesse Davis MD @ 11/02/2023 3:09:44 PM (Electronically Signed) John Alas MD GENERAL IMAGING * XR HIP 1 VIEW W PELVIS RIGHT (10/21/2023 2:43 PM CDT) Anatomical Region Laterality Modality HIPS, HIPR, Pelvis Computed Radi ography 10/21/2023 3:50 PM CDT Narrative 10/21/2023 3:50 PM CDT For Patients: ??As a result of the Cures Act, medical imaging exams and procedure reports are released immediately into your electronic medical record. ??You may view this report before your referring provider. ??If you have questions, please contact your health care provider. Indication: Hip pain Technique: Pelvis and right hip 2 views Comparison: None Findings: Bilateral pelvic phleboliths. Spurring at the iliac crests. No fracture. Mild degenerative changes at both hips. Impression: Mild degenerative joint disease right hip. Dictated by Jesse Davis MD @ 10/21/2023 3:50:01 PM (Electronically Signed) Procedure Note Jesse Davis MD - 10/21/2023 For Patients: As a result of the s Act, medical imagingexams and procedure reports are released immediately into your electronicmedical record. You may view this report before your referring provider.If you have questions, please contact your health care provider. Indication: Hip pain Technique: Pelvis and right hip 2 views Comparison: None Findings: Bilateral pelvic phleboliths. Spurring at the iliac crests. No fracture.Mild degenerative changes at both hips. Impression: Mild degenerative joint disease right hip. Dictated by Jesse Davis MD @ 10/21/2023 3:50:01 PM (Electronically Signed) Gretchen Oneal DO GENERAL IMAGING from Last 3 Months Care Teams Maternity Floor Supervisor Relationship Specialty Start Date End Date Gretchen Oneal [place] [address] [address] PCP - General Family Practice 07/18/20
--- OUTSIDE RECORDS SUMMARY | 2023-12-14 08:47 | XMS_ITS | Clinical Summary ---
Author Organization [facility] Address [address], [place] [address] Care Team Providers Care Coal Pulverizing Operator Name Role Phone No Primary/Referring, Phy Primary Care Provider Unavailable Source Comments You are receiving this document as you are listed as the primary care provider,follow-up provider, or the patient has been referred to you for consultation.This is in compliance with the Medicare and[facility] EHR Incentive Program,which states Providers who transition their patient to another setting of careor provider of care or refers their patient to another provider of care shouldprovide summary care record for each transition of care or referral. [employer] Active Problems Problem Noted Date Diagnosed Date Nonallopathic lesion of thoracic region 02/28/20 14 Overview: Epic Spasm of muscle 02/27/2014 Resolved Problems Problem Noted Date Diagnosed Date Resolved Date Acute thoracic back pain 04/29/201702/2017 Immunizations Name Administration Dates Next Due Pfizer Monovalent 12+ Purple Top 09/14/2020,03/0 11/2020 Social History Tobacco Use Types Packs/Day Years Used Date Smoking Tobacco: Never Assessed Sex and Gender Information Value Date Recorded Sex Assigned at Not on file Gender Identity Not on file Sexual Orientation Not on file Last Filed Vital Signs Vital Sign Reading Time Taken Comments Blood Pressure 145/68 11/03/2011 11:50 AM CDT Pulse 65 11/03/2011 11:50 AM CDT Temperature - - Respiratory Rate - - Oxygen Saturation - - Inhaled Oxygen Concentration - - Weight - - Height - - Body Mass Index - - Plan of Treatment Health Maintenance Due Date Last Done Comments DTaP/Tdap/Td (1 - Tdap) 11/26/1964 COVID-19 Vaccine (2022-24 season) 2023 09/14/2020, 08/24/2020 Medicare Annual Wellness Visit 06/21/2023 Influenza (Season Ended) 2024 020, 03/24/2019, 04/22/2018, Additional history exists Pneumococcal 65+ Yrs Completed 04/25/2015, 04/27/2013, 04/27/2005 Zoster/Shingles Completed 05/29/2019, 03/27/2019 HepA Aged Out No longer eligi ble based on patient's age to complete this topic HepB Aged Out No longer eligi ble based on patient's age to complete this topic Hib Aged Out No longer eligi ble based on patient's age to complete this topic IPV (Polio) Aged Out No longer eligi ble based on patient's age to complete this topic MCV4 Aged Out No longer eligi ble based on patient's age to complete this topic Care Teams Coal Pulverizing Operator Relationship Specialty Start Date End Date No Primary/Referring, Phy PCP - General 02/27/14
== END 2023-12-14 08:44 | disposition home or self-care (01) ==
LOC: INJ CL 08:45
PROVIDERS: PCP Student in an Organized Health Care Education/Training Program; Visit Provider Family Medicine
DX: M54.16 Radiculopathy, lumbar region (principal); M51.36 Other intervertebral disc degeneration, lumbar region
CPT/HCPCS: 62323; Q9966

== ENCOUNTER 2024-04-25 09:03 | Outpatient (CLI) | payer MEDICARE, SELFPAY | END 2024-04-25 09:04 | disposition home or self-care (01) | LOC: INJ CL 09:04 | PROVIDERS: PCP Student in an Organized Health Care Education/Training Program; Visit Provider Family Medicine | DX: M54.16 Radiculopathy, lumbar region (principal); M51.360 Other intervertebral disc degeneration, lumbar region with discogenic back pain only | CPT/HCPCS: 62323; J0702; Q9966 ==

== ENCOUNTER 2025-01-09 12:49 | Outpatient (CLI) | payer MEDICARE, SELFPAY | END 2025-01-09 12:50 | disposition home or self-care (01) | LOC: INJ CL 12:53 | PROVIDERS: PCP Student in an Organized Health Care Education/Training Program; Visit Provider Family Medicine | DX: M54.16 Radiculopathy, lumbar region (principal); M51.360 Other intervertebral disc degeneration, lumbar region with discogenic back pain only | CPT/HCPCS: 62323; Q9966 ==

== ENCOUNTER 2025-06-16 09:53 | Inpatient (IN) | payer MEDICARE, SELFPAY ==
--- OUTSIDE RECORDS SUMMARY | 2012-07-19 10:15 | XMS_ITS | Continuity of Care Document ---
Author Organization [facility] Address [address] [address] [place] [address] Phone Care Team Providers Care Fusion Juncture Grinder Name Role Phone Unavailable Unavailable Unavailable Medications Medication Instructions Dosage Effective Dates (start - stop) Status Comments MiralaxBisacodylMagCit Colon Prep Use as directed - Active Advance Directives Directive Yes / No Effective Date File Name No Information Encounters Encounter Description Practice Location Reason(s) For Visit Diagnoses Date Provider Providers Copied on Encounter [facility] [employer] [place], [address] [address], [place], [place], [id number], tel:[phone] [facility] No Information No Information Referring Provider: Cachorro Villatoro, [address] [place], [address]. tel:[phone] [facility], [address] [address], [place], [place], [id number], tel:[phone] [facility] No Information No Information Referring Provider: Cachorro Villatoro, [address] [place], [address]. tel:[phone] Family History Family Member Type Diagnosis Age At Onset No Information Payers Payer name Insurance type Covered alliance party ID Authoriza tion(s) No Information Social History Type Description Quantity Date Captured Comments Sex Male Smoking Status No Information Chief Complaint And Reason For Visit No Information Reason For Referral Reason For Referral No Information History Of Present Illness Encounter Date Complaint History Of Prese nt Illness No Information Functional Status Date Functional Assessmen t No Information Instructions Date Instruction Additional Infor mation No Information Assessments Type Assessment Date No Information Patient Care Teams Name Effective Dates (start - stop) Status Members No Information
[2025-06-16] VITALS (29 sets, daily range): BP systolic 135–177; BP diastolic 74–91; PULSE 78–98; RESP 11–28; TEMP 36.4–37.4; O2SAT 83–94; BMI 37.3; BMI 37.9
--- OUTSIDE RECORDS SUMMARY | 2025-06-16 09:57 | XMS_ITS | Data Portability ---
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 mstassifritz Not available 09/03/2022 12:02:03 10/26/2022 10/26/2022 This is a 76 yea r old male who is here for the evaluation and management of benign prostatic hyperplasia with lower urinary tract symptoms. mstassifritzNot spurhfwid00/08/2023 11:40:3207This is a 76 year old male who is here for the evaluation and management of benign prostatic hyperplasia with lower urinary tract symptoms.mstassifritzNot available 12/30/2022 09:22:14 Plan of Treatment Reminders Order DateSubmit DateProviderLast Modified ByChristina DetailsLast Modified TimeDetailsAppointmentsNone recorded.Laburinalysis, epcefqzo17 [facility], [address] [facility], [place], [address], 79/05/2023 09:18:11urinalysis, wnanutqv19/08/2023 10/26/2022[facility], [address], [address], [place], [address], Ph [phone] 11:21:18urinalysis, dipstick [facility], [address], [address], [place], [address], Ph [phone] 12:32:19ReferralNone recorded.ProceduresNone recorded.SurgeriesNone recorded.ImagingNone recorded. Medication Ordersfinasteride 5 mg [id number], [address] [place], [address], 56 13:56:17doxazosin ER 4 mg tablet,extended release 24 hr/01/2023 [id number], [address] [place], [address], 16 11:17:25 Patient TargetsNo targets recorded. Patient Instructions Encounter Date Encounter Id Patient Instructions Last Modified By Organization Details Last Modified Time 09/03/2022 [id number] benign prostatic hyperplasia with lower urinary tract [...] bed iván Not available 09/03/2022 12:52:39 10/26/2022 [id number] benign prostatic hyperplasia with lower urinary tract [...] I will see back in 1 month nikkiifjose angel Not available 10/26/2022 11:42:48 12/30/2022 [id number] benign prostatic hyperplasia with lower urinary tract [...] with urgency, we can reconsider OAB medication mstassifritz Not available 12/30/2022 09:24:02 Reason for Referral None Reported. Results Created Date Observation Date Name Description Value Unit Range Abnormal Flag Note LastModifiedBy Organization Detail LastModifiedTime 09/03/2022 09/03/2022 UA DIP CS STATUS color -advantus VALERIE Adkins [facility] [address], [place], [address], 03/ 12:32:19 UA DIP CS STATUSappearance -advantusCLEARclearNot Available [facility] [address] [place] [address] [address], [place], [address], Ph [phone] 12:32:19 /UA DIP CS STATUSglucose -advantusNEGATIVEmg/dLnegativeNot Available[facility] [address] [place] [address] [address], [place], [address], Ph [phone] 12:32:19 /UA DIP CS STATUSbilirubin -advantusNEGATIVEnegativeNot Available[facility] [address] [place] [address], [place], [address], Ph [phone] 12:32:19 /UA DIP CS STATUSketones -advantusNEGATIVEmg/dLnegativeNot Available[facility] [address] [place] [address] [address], [place], [address], Ph [phone] 12:32:19 /UA DIP CS STATUSsp. gravity -advantus1.0201.010-1.025Not AvailableN[facility] [address] [place] [address] [address], [place], [address], Ph [phone] 12:32:19 /UA DIP CS STATUSpH -advantus7.05.0-8.0Not AvailableMary[facility] [address] [place] [address] [address], [place], [address], Ph [phone] 12:32:19 /UA DIP CS STATUSprotein -advantusNEGATIVEmg/dLnegativeNot AvailableMary[facility] [address] [place] [address] [address], [place], [address], Ph [phone] 12:32:19 /UA DIP CS STATUSurobilinogen -advantus0.20.2 E.U./dLNot AvailableMary[facility] [address] [place] [address], [place], [address], [address] 12:32:19 /UA DIP CS STATUSnitrites -advantusNEGATIVEnegativeNot Available[facility] [address] [place] [address], [place], [address], [address] 12:32:19 /UA DIP CS STATUSblood -advantusNEGATIVEnegativeNot Available [facility] [address] [place] [address], [place], [address], [address] 12:32:19 /UA DIP CS STATUSleukocytes -advantusNEGATIVEnegativeNot Available[facility] [address] [place] [address], [place], [address], [address] 12:32:19 UA DIP CS STATUSperformed byTOUA TNot AvailableN[facility] [address] [place] [address], [place], [address], [address] 12:32:19 UA DIP CS STATUStotal urine volume (mL)85/mL *Please note the following minimum quantities for additional urine testing: - Atypicals: 3 mL - Cytology: 20 mL - GC/CH: 2 mL - FISH: 30 mL - Atypicals w/ GC/CH: 5 mL - Cytology PLUS FISH: 50 mL - Urine Culture: 3 mL -------- This lab result is being provided to you and your provider at the same time in compliance with the Century Cures Act. Your provider may not have had time to review and make recommendations based on the result. Please allow up to one week for provider review.Not AvailableMinnesota [facility] [address] [address], [place], [address], Ph [phone] 12:32:19 UA WITHOUT MICRO - CS URISCANblood - uriscanNEGATIVEnegative Not AvailableMinnesota [facility] [address] [place] [address], [address], Ph [phone] 11:21:18 10/26/UA WITHOUT MICRO - CS URISCANbilirubin - uriscanNEGATIVE mg/dLnegativeNot AvailableMinnesota [facility] [address] [place] [address], [place], [address], Ph [phone] 11:21:18 UA WITHOUT MICRO - CS URISCANurobilinogen - uriscanNORMAL mg/dLnormalNot AvailableMinnesota [facility] [address] [place] [address], [place], [address], [address] 11:21:18 UA WITHOUT MICRO - CS URISCANketones - uriscanNEGATIVEmg/dL negativeNot AvailableMinn[facility] [address] [place] [address] [address], [place], [address], [address] 11:21:18 UA WITHOUT MICRO - CS URISCANprotein - uriscanNEGATIVEmg/dL negativeNot AvailableMinn[facility] [address] [facility] [address], [place], [address], Ph [phone] 11:21:18 10/26//01/2023UA WITHOUT MICRO - CS URISCANnitrites - uriscanNEGATIVE negativeNot AvailableMinnesota [facility] [address] [facility] [address], [place], [address], Ph [phone] 11:21:18 10/26//01/2023UA WITHOUT MICRO - CS URISCANglucose - uriscanNEGATIVEmg/dL negativeNot AvailableMinn[facility] [address] [facility] [address], [place], [address], Ph [phone] 11:21:18 10/26//01/2023UA WITHOUT MICRO - CS URISCANpH - uriscan5.505.00-9.00Not AvailableMinnesota [facility] [address] [place] [address] [address], [place], [address], Ph [phone] 11:21:18 10/26//01/2023UA WITHOUT MICRO - CS URISCANsp. gravity - uriscan1.03 1.01-1.03Not AvailableMinn[facility] [address] [place] [address] [address], [place], [address], Ph [phone] 11:21:18 10/26//01/2023UA WITHOUT MICRO - CS URISCANleukocytes - uriscanNEGATIVE negativeNot AvailableMinnesota [facility] [address] [facility] [address], [place], [address], Ph [phone] 11:21:18 10/26/UA WITHOUT MICRO - CS URISCANcolor - uriscanYELLOWNot AvailableMinnesota [facility] [address] [facility] [address], [place], [address], Ph [phone] 11:21:18 /01/2023UA WITHOUT MICRO - CS URISCANclarity - uriscanCLEARNot AvailableMinfriends [facility] [address] [facility] [address], [place], [address], [address] 11:21:18 UA WITHOUT MICRO - CS URISCANtotal urine volume (mL)40/mL *Please note the following minimum quantities for additional urine testing: - Atypicals: 3 mL - Cytology: 20 mL - GC/CH: 2 mL - FISH: 30 mL - Atypicals w/ GC/CH: 5 mL - Cytology PLUS FISH: 50 mL - Urine Culture: 3 mL -------- This lab result is being provided to you and your provider at the same time in compliance with the Century Cures Act. Your provider may not have had time to review and make recommendations based on the result. Please allow up to one week for provider review.Not AvailableM[facility]riends [facility] [address] [facility] [address], [place], [address], 25 11:21:18 UA WITHOUT MICRO - CS URISCANblood - uriscanNEGATIVEnegative Not AvailableMary[facility] [address] [facility] [address], [place], [address], [address] 09:18:10 UA WITHOUT MICRO - CS URISCANbilirubin - uriscanNEGATIVE mg/dLnegativeNot AvailableMinnesota [facility] [address] [facility] [address], [place], [address], Ph [phone] 09:18:10 12/30//05/2023UA WITHOUT MICRO - CS URISCANurobilinogen - uriscanNORMAL mg/dLnormalNot AvailableMinnesota [facility] [address] [facility] [address], [place], [address], Ph [phone] 09:18:10 /05/2023UA WITHOUT MICRO - CS URISCANketones - uriscanNEGATIVEmg/dL negativeNot AvailableMinn[facility] [address] [place] [address] [address], [place], [address], Ph [phone] 09:18:10 UA WITHOUT MICRO - CS URISCANprotein - uriscanNEGATIVEmg/dL negativeNot AvailableMinn[facility] [address] [place] [address] [address], [place], [address], Ph [phone] 09:18:10 12/30/UA WITHOUT MICRO - CS URISCANnitrites - uriscanNEGATIVE negativeNot AvailableMinnesota [facility] [address] [place] [address] [address], [place], [address], Ph [phone] 09:18:10 UA WITHOUT MICRO - CS URISCANglucose - uriscanNEGATIVEmg/dL negativeNot AvailableMinn[facility] [address] [place] [address] [address], [place], [address], Ph [phone] 09:18:10 /05/2023UA WITHOUT MICRO - CS URISCANpH - uriscan8.005.00-9.00Not AvailableMinnesota [facility] [address] [place] [address] [address], [place], [address], Ph [phone] 09:18:10 /05/2023UA WITHOUT MICRO - CS URISCANsp. gravity - uriscan1.01 1.01-1.03Not [facility] [address] [facility] [address], [place], [address], Ph [phone] 09:18:10 UA WITHOUT MICRO - CS URISCANleukocytes - uriscanNEGATIVE negativeNot [facility] [address] [facility] [address], [place], [address], Ph [phone] 09:18:10 UA WITHOUT MICRO - CS URISCANcolor - uriscanYELLOWlt. yellow;yellowNot [facility] [address] [place] [address], [place], [address], Ph [phone] 09:18:10 UA WITHOUT MICRO - CS URISCANclarity - uriscanCLEARclearNot [facility] [address] [place] [address], [place], [address], Ph [phone] 09:18:10 UA WITHOUT MICRO - CS URISCANtotal urine volume (mL)60/mL *Please note the following minimum quantities for additional urine testing: - Atypicals: 3 mL - Cytology: 20 mL - GC/CH: 2 mL - FISH: 30 mL - Atypicals w/ GC/CH: 5 mL - Cytology PLUS FISH: 50 mL - Urine Culture: 3 mL -------- This lab result is being provided to you and your provider at the same time in compliance with the 21st Century Cures Act. Your provider may not have had time to review and make recommendations based on the result. Please allow up to one week for provider review.Not AvailableMinnesota [facility] [address] [place] [address] [address], [place], [address], Ph [phone] 09:18:10 Result Notes Documentation Provider Name and Address Organization Details Recorded Time Urinalysis, Dipstick : General Interpretation TOM Zavala [address] [place], [place] [address], [place], [address], [facility] 10/26/2022 11:56:26 Problems No Known Problems Procedures Surgical History Date Name Laterality Status Provider Name and Address Organization Details Recorded Time 12/30/2022 [facility] 09:03:1705 [facility]completed[facility]/26/2022 11:17:17 09/03/2022[facility] 11:50:07 Imaging Results None recorded. Procedure Notes None recorded. Medical Equipment None Reported. Allergies Allergen ID Allergen Name Allergen Category Reaction Reaction Severity Criticality Documentation Date Start Date Code Code System Note Provider Name and Address Organization Details Recorded Time 668884 doxazosin medication diarrhea severe Not pmmuaxuob17/08/710551289MjBottZew SnzhehcdrEqcesgFqltnr09/29/2023 14:39:13 Medications Name Sig Start Date Stop Date Status Note LastModified by Organization Details LastModified Time tamsulosin 0.4 mg capsule TAKE 1 CAPSULE (0.4 MG) BY MOUTH ONCE DAILY AFTER A MEAL. 09/03/20227235yemavzyec9705-84-89 HN: Patient reports no longer takingNot Available Not AvailableNot Availabledoxazosin 4 mg tabletTAKE 1 TABLET BY MOUTH EVERY DAY activeNot AvailableNot AvailableNot Availablefinasteride 5 mg tabletTAKE 1 TABLET BY MOUTH EVERY DAYactiveNot AvailableNot AvailableNot AvailableRestasis 0.05 % eye drops in a dropperetteactiveNot AvailableNot AvailableNot Available doxazosin ER 4 mg tablet,extended release 24 hrTake 1 tablet every day by oral route.305/ompletedNot AvailableNot AvailableNot Available silodosin 8 mg capsuleactiveNot AvailableNot AvailableNot AvailableXiidra 5 % eye drops in a dropperetteactiveNot AvailableNot AvailableNot Available Vitals Date Recorded Body weight Provider Name an d Address Organization Details Last Updated DateTime 09/03/2022 85719.97 g Maryuri Grider [facility] 09/03/2022 11:42:57 Date Recorded Body mass index (BMI) Body height Provider Name and Address Organization Details Last Updated DateTime 09/03/2022 19.9 kg/m2 175.26 cm Not Available Health Note 11:30:50 Date Recorded Body height Body mass index (BMI) Body weight Provider Name and Address Organization Details Last Updated DateTime 10/26/2022 175.26 cm 34.7 kg/m2 302844.21 g Karis Dsah [facility] 10/26/2022 11:14:16 Date Recorded Body weight Provider Name an d Address Organization Details Last Updated DateTime 12/30/2022 482867.61 anjali Grider [facility] 12/30/2022 08:54:31 Date Recorded Body height Body mass index (BMI) Provider Name and Address Organization Details Last Updated DateTime 12/30/2022 175.26 cm 34.6 kg/m2 Not Available Health Note 08:48:42 Social History Question Answer Notes LastModified by Organization D etails LastModified Time Tobacco Smoking Status Former Smoker Not AvailableHealth Note12/26/2022 13:56:14What Is Your Level Of Caffeine Consumption?ModerateAPI-685Information not vsnrjecku43/08/2023How Much Tobacco Do You Chew?NoneAPI-685Information not fiflxrjil88/08/2023When Did You Quit Smoking?16+qrqplksgatracycamfuzmtcshoidpac4Vaygvxpyhul not vhpuxcndn31/11/2023 DimnQewnlyxbgeggh5Xemiygzvrhy not baqzobyeu72/16/2023EthnicityNot /Fmqwbkejrrarmv3Vptctrsfung not nolptcnrx59/16/2023referred Language Yfxegpthghjuxkg0Ekdvjtbbitk not rbxpmhajh44/16/2023Recreational Drug UseNo totjwqjc7Ahkkfclgewh not hvsctoxub76/16/2023ould You Be ?Notbertram4 Information not mwkwlowqw87/16/2023What Was The Date Of Your Most Recent Tobacco Screening?12/30/2022PI-685Information not ujxkbupjx04/08/2023Have You Ever Been Counseled For Unhealthy Alcohol Use?Kwgvyfuolo3Mnvejgudbon not available 12/29/2022What Is Your Relationship Status?MarriedAPI-685Information not /08/2023re You Sexually Active?NoAPI-685Information not available 12/26/2022Has Tobacco Cessation Counseling Been Provided?Ricjguhlid0Mkbdvztomwm not vmtwuiznv01/16/2023How Many Years Have You Smoked Tobacco?20API-685 Information not cmcchcyoy25/08/2023How Many Days In The Past Year Have You Consumed 5 Or More Drinks?0API-685Information not safhmyldk11/08/2023 Sex: Unknown Functional Status Question Answer Note LastModified by Organization D etails LastModified Time Do you use any illicit or recreational drugs? No API-685Information not eyakhwepn50/08/2023o you or have you ever used any other forms of tobacco or nicotine?Lsrwrfavph8Lnhcnptmsou not sbjfucrsj80/16/2023What is your level of alcohol consumption?OccasionalAPI-685Information not available 12/26/2022o you or have you ever used smokeless tobacco?Never used smokeless tobaccoAPI-685Information not /08/2023re you currently employed?No lkcsnmin1Ktbyxqjkspl not /16/2023o you or have you ever used e- cigarettes or vape?Never used electronic cigarettesAPI-685Information not ximjvojib89/08/2023 Mental Status None recorded. Family History Relationship Description Onset Age of this Age Resolved Age Notes LastModified by Organization Details LastModified Time Father No current problems or disabilit y API-685Not qpvwgxycc47/14/2023 14:29:39MotherNo current problems or disability API-685Not oosgirzgv68/14/2023 14:29:39 Medical History Condition Response Sexually Transmitted Infection N Diabetes N Other N Bleeding Disorder N High Blood Pressure N Kidney Stones N High Cholesterol N GERD/Acid Reflux N Heart Disease N Cancer N Lung Disease N Depression N Immunizations Vaccine Type Date Status Note Provider Nam e and Address Organization Details Recorded Time SARS-COV-2 (COVID-19) vaccine, UNSPECIFIED 08/19/2021 completed Maryuri erickson [facility] Hhftebd8912/30/2022 08:54:56VZJB-NGG-0 (COVID-19) vaccine, QWTBKQSZXKG06/01/2022ompletedTfrancisca erickson [facility] Hzwpzdh9912/30/2022 08:54:36 Past Encounters Encounter ID Performer Location Encounter Start Date Encounter Closed Date Diagnosis/Indication Diagnosis SNOMED-CT Code Diagnosis ICD10 Code Diagnosis IMO Codes Diagnosis Note [id number] TOM Zavala [address] [address] 09/03/2022 11:30:29 09/03/2022 13:48:53 Lower urinary tract symptoms due to benign prostatic hypertrophy 88586002146314 N40.1 [id number] [address] 10/26/2022 11:07:31010/26/2022 11:43:53Lower urinary tract symptoms due to benign prostatic mxpbfixfhsx82501018850352G99.[id number] [address] 12/30/2022 08:47:29012/30/2022 09:25:20Lower urinary tract symptoms due to benign prostatic itcewxdigyp18346539000430Q49.1 Health Concerns Section Related Observation LastModified by Organization Detai ls LastModified Time None Recorded Concern Status LastModified by Organization Details LastModified Time None Recorded Advance Directives Directive None Recorded Payers Insurance Date Sequence Insurance Name Policy Number Policy Luis Covered Member ID Luis Member ID Guarantor Name 04/21/2023 1 [employer] (MEDICARE REPLACEMENT/ADVANTAGE - PPO) [id number] Geo Barrera [id number] Geo Barrera Notes Date Note Type Note Provider Name and Address Niraj mcclain Details Recorded Time 09/03/2022 text/html This is a 76 year old male who is here for the evaluation and management of benign prostatic hyperplasia with lower urinary tract symptoms. Symptoms have been present for several years, worsening over the last yearHis most bothersome symptom is slow stream and urinary frequencyHe denies gross hematuria.There is not history of recurrent urinary tract infections.There is not history of urinary retention.Current medical therapy includes nothing Previously on tamsulosin 0.4mg daily, he stopped this since it was not helping. His symptoms have not changed without it He is participating in prostate cancer screening.His most recent PSA was 2.65 ng/mL (09/12/2021)There is not family history of prostate cancer.TOM Wang [address] [place] [address],[address], [address], [facility] Nyaorcx3709/03/2022 12:52:52010/26/2022text/html This is a 76 year old male who is here for the evaluation and management of benign prostatic hyperplasia with lower urinary tract symptoms. Symptoms have been present for several years, worsening over the last yearHis most bothersome symptom is slow stream and urinary frequencyHe denies gross hematuria.There is not history of recurrent urinary tract infections.There is not history of urinary retention.Current medical therapy includes doxazosin, which he was started on at his last appointment. He experienced diarrhea with this, so discontinued.Previously on tamsulosin 0.4mg daily, he stopped prior to our last appointment since he did not seea benefit. He states that looking back, this medication did help, and would like to resume it He is participating in prostate cancer screening.His most recent PSA was 2.65 ng/mL (09/12/2021)There is not family history of prostate cancer.TOM Wang [address] [place] [address],[address], [place], [address], [facility] Tgahmlq0810/26/2022 11:43:0307text/html This is a 76 year old male who is here for the evaluation and management of benign prostatic hyperplasia with lower urinary tract symptoms.Symptoms have been present for several years, worsening over the last yearHis most bothersome symptom is slow stream and urinary frequencyHe denies gross hematuria.There is not history of recurrent urinary tract infections.There is not history of urinary retention.Current medical therapy includes tamsulosin 0.4 mg daily, and finasteride 5 mg daily, started at his last appointmentStates his stream is stronger, but he has been struggling with urgencyHe is participating in prostate cancer screening.His most recent PSA was 2.65 ng/mL (09/12/2021)There is not family history of prostate cancer. TOM Zavala [address] [place] [address],[address], [place], [address], [facility] [place] Jahxlfy2712/30/2022 09:24:22
--- OUTSIDE RECORDS SUMMARY | 2025-06-16 09:57 | XMS_ITS | Clinical Summary ---
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 Bynum. ~ April 2024: L4-L5 IL epidural steroid injection by Dr. Bynum, Good improvement. Apr 2024 also doing formal physical therapy. Spondylolisthesis at L4-L5 level07/15/2020enign localized hyperplasia of weumdjav52/03/2019Mild chronic obstructive pulmonary xvctbll9601/09/2015 Overview (09/12/2021): Disease Lung Obstructive Chronic (COPD) Mild Erectile yalznznfhed91/22/2015Obesity,11/19/2011vitamin D zdrhnninqa37/24/2012 Low crgkuhjnrrum97/24/2012Decreased mrbdes1208/10/2011Routine health maintenance 08/10/2011 Encounters DateTypeDepartmentCare MvtdUpdobsffngn98/27/2025Nurse Triage [facility] [address] [place] [address] Gretchen Oneal, DO Breathing Problemfrom Last 3 Months Immunizations ImmunizationAdministration DatesNext DueInfluenza, High-dose Inactivated 03/28/2020,03/24/2019,04/22/2018,03/25/2017,04/25/2015Influenza, High-dose Quadrivalent Lxmtdarkhcl40/06/2022,1Pneumococcal Poly,23-Valent (Pneumovax)04/27/2013,04/27/2005Pneumococcal conj 13-Valent (Prevnar 13) 04/25/2015Zoster (Shingrix-RZV, recombinant)05/29/2019,03/27/2019 Family History Medical HistoryRelationNameCommentsLung cancerBrother 1Heart attackBrother 2Lung cancerFatherAlzheimer's diseaseMotherRelationNameStatusCommentsBrother 1Deceased Brother 2DeceasedFatherDeceasedMotherDeceasedSisterDeceased Social History Tobacco UseTypesPacks/DayYears UsedDateSmoking Tobacco: NeverPassive Smoke Exposure: NeverSmokeless Tobacco: Never Tobacco Cessation:Counseling Given: Not Answered Alcohol UseStandard Drinks/WeekCommentsYes0 (1 standard drink = 0.6 oz pure alcohol)PHQ-2AnswerDate RecordedPHQ-2 TOTAL EGVRE317ocial Connections AnswerDate RecordedDo you often feel lonely or isolated from those around you?0 12/11/2024Financial Resource StrainAnswerDate RecordedDifficulty of Paying Living Vrvbzitc068/23/2025Difficulty of Paying Living ExpensesNot on file 12/11/2024Food InsecurityAnswerDate RecordedDo you worry your food will run out before you are able to buy more?Transportation NeedsAnswerDate RecordedDoes lack of transportation keep you from medical appointments?1 12/11/2024Does lack of transportation keep you from work, meetings or getting things that you need?Housing StabilityAnswerDate RecordedWhat is your housing situation today?UtilitiesAnswerDate RecordedDo you have trouble paying for utilities (for example, heat, electricity, water, phone)?1 12/11/2024Sex and Gender InformationValueDate RecordedSex Assigned at BirthNot on fileLegal XmsIude1707/04/2012 8:24 AM CSTGender IdentityNot on fileSexual OrientationNot on file Last Filed Vital Signs Vital SignReadingTime TakenCommentsBlood Sstfdcrl338/8212/11/2024 12:05 PM CDT Kujnn022012/11/2024 12:05 PM FAXUzvsbpfhwfd18.6 ??C (97.8 ??F)10/26/2024 1:18 PM CDTRespiratory Jjgo826208/17/2023 8:55 AM CSTOxygen Idhtytndxj63%12/11/2024 12:05 PM CDTInhaled Oxygen Concentration--Napbfh174 kg (247 lb)12/11/2024 12:05 PM CDT Jcnwmz040.5 cm (5' 8.31)10/21/2023 2:05 PM CDTBody Mass Index37.22010/21/2023 2:05 PM CDT Plan of Treatment Health MaintenanceDue DateLast DoneCommentsRSV vaccine for adults or (1 - 1-dose 75+ series)11/26/2018Medicare Wellness for age 65+09/13/2022 09/12/2021, 11/19/2011Depression screening for age 12+, 09/12/2021, 1BMI (ht and wt on same day) for age 18+10/20/2024 10/21/2023, 10/23/2022, 2COVID-19 vaccine series ( season) 512/08/2020, 09/14/2020, 08/24/2020Influenza Vaccine (#1)2025 03/28/2020, 03/24/2019, 04/22/2018, Additional history existsPneumococcal series for age 50+Uarxgivbh34/05/2015, 04/27/2013, 04/27/2005Zoster (shingles) series for age 50+Yxkrrsweg20/09/2019, 03/27/2019Hepatitis B series for 19+Aged OutNo longer eligible based on patient's age to complete this topicTetanus booster Discontinued Insurance * Guarantor: Geo Barrera TypeRelation to PatientDate of BirthPhone Billing AddressPersonal/WtpiwoXeqe65/08/1946 [id number] [address] [place] [address] Care Teams Team MemberRelationshipSpecialtyStart DateEnd Gretchen Oneal DO [address] [place] [address] PCP - GeneralFamily Practice07/18/20
--- NOTE | 2025-06-16 10:03 | ED.GENADULT ---
HPI - General Adult General Date Seen: 06/16/25 Chief complaint: Shortness of Breath/Dyspnea Stated complaint: SOB Time Seen by Provider: 06/16/25 10:03 History of Present Illness HPI narrative: 79 yo M with a past medical history elevated BMI, low testosterone, BPH, COPD, lumbar radiculopathy. He says he is generally pretty healthy knees not currently on any prescription meds. He does take ibuprofen once in a while if he has an ache. He has been sick since [place], 3 days ago. Symptoms started with some phlegm in his throat and cough, also nasal congestion. He has been around his grandchildren and great grandchildren have stuffy noses but he is not aware that the any of them have any specific diagnosis such as COVID or influenza. No other known sick contacts. With his phlegm in his throat and cough, he has been feeling short of breath. He has been feeling worsening with his cough and shortness of breath. He feels like his throat is full of phlegm and tight. He is feeling short of breath and so came here to the ER. He is not having any chest pain. Last night, He had been having some upper abdominal pain which he thinks is muscular from pulled muscles from coughing spells. No vomiting. No ongoing abdominal pain. He is not having any swelling in his legs. No palpitations. No fever. No diarrhea. No rash. Related Data Home Medications ?Medication ?Instructions ?Recorded ?Confirmed No Known Home Medications 12/18/23 06/16/25 Allergies Allergy/AdvReac Type Severity Reaction Status Date / Time No Known Drug Allergies Allergy Verified 01/09/25 15:17 [facility] Medical History (Updated 06/16/25 @ 17:04 by Misael Pablo MD) Vitamin D deficiency (11/12/11) ?E55.9 - Vitamin D deficiency, unspecified (ICD-10) Spondylolisthesis at L4-L5 level (07/15/20) ?M43.16 - Spondylolisthesis, lumbar region (ICD-10) Mild chronic obstructive pulmonary disease (01/09/15) ?J44.9 - Chronic obstructive pulmonary disease, unspecified (ICD-10) Low testosterone (11/12/11) ?R79.89 - Other specified abnormal findings of blood chemistry (ICD-10) Low back pain (09/12/21) ?M54.50 - Low back pain, unspecified (ICD-10) Erectile dysfunction (01/09/15) ?N52.9 - Male erectile dysfunction, unspecified (ICD-10) Decreased libido (08/10/11) ?R68.82 - Decreased libido (ICD-10) Benign localized hyperplasia of prostate (09/21/18) ?N40.0 - Benign prostatic hyperplasia without lower urinary tract symptoms (ICD-10) Influenzal pneumonia ?J11.00 - Influenza due to unidentified influenza virus with unspecified type of pneumonia (ICD-10) Hypoxic respiratory failure ?J96.91 - Respiratory failure, unspecified with hypoxia (ICD-10) Obesity ?E66.9 - Obesity, unspecified (ICD-10) Family History (Updated 06/16/25 @ 17:01 by Misael Pablo MD) Brother Lung cancer Heart disease Father Lung cancer Mother Alzheimers disease Social History (Updated 06/16/25 @ 17:02 by Misael Pablo MD) What is your current living situation?: I presently have a place to live Problems where you live: no known problems Problems where you live details: N/A In the past 12 months, utilities in danger of being shut off: no In past 12 months, lack of transportation kept you from medical appts, meetings, work, or getting things needed for daily living: no In the past 12 mos, have been you worried that your food would run out before you had money to buy more?: never true In the past 12 mos, the food you bought just didn't last and you didn't have money to buy more?: never true Highest level of school completed/degree received: high school graduate Smoking Status: Former smoker What tobacco products do you use: cigarettes Smoking quit date/years: >15 years ago How often do you have a drink containing alcohol: 4 or more times a week Alcohol type: beer How many standard drinks containing alcohol do you have on a typical day: 1 or 2 AUDIT-C Alcohol total score: 4 Caffeine: Yes How often does anyone, including family, friends and others, physically hurt you: never How often does anyone, including family, friends and others, insult or talk down to you: never How often does anyone, including family, friends and others, threaten you with harm: never How often does anyone, including family, friends and others, scream or curse at you: never service: No Exam Narrative: Exam Narrative: Constitutional: Appears well-developed and well-nourished. Alert. Conversant. He is hypoxic to 83% on room air but sats, the 95 on 2 L. He says he feels better on oxygen. He is able to speak full sentences. Mild subcostal retractions but no respiratory distress HENT: Head: Atraumatic. Nose: Nose normal. Mouth/Throat: Oral mucosa is clear . Mucous membranes are moist. no trismus. Pharynx normal. Tonsils symmetric. No tonsillar enlargement, erythema, or exudate. Eyes: Conjunctivae normal. EOM normal. Pupils equal, round, and reactive to light. No scleral icterus. Neck: Normal range of motion. Neck supple. No tracheal deviation present. No JVD Cardiovascular: Normal rate, regular rhythm. No gallop. No friction rub. No murmur heard. Symmetric radial and PT artery pulses Pulmonary/Chest: Mild subcostal retractions No stridor. No respiratory distress. Diffuse bilateral No rales. No rhonchi . No tenderness. Abdominal: Soft. No distension. No mass. No tenderness. No rebound. No guarding. Musculoskeletal: RUE: Normal range of motion. No tenderness. No deformity LUE: Normal range of motion. No tenderness. No deformity RLE: Normal range of motion. No edema. No tenderness. No deformity LLE: Normal range of motion. No edema. No tenderness. No deformity Lymph: No cervical adenopathy. Neurological: Alert and oriented to person, place, and time. Normal strength. CN II-VII intact. No sensory deficit. GCS eye subscore is 4. GCS verbal subscore is 5. GCS motor subscore is 6. Normal coordination Skin: Skin is warm and dry. No rash noted. No pallor. Normal capillary refill. Psychiatric: Normal mood. Normal affect. Const: Vital Signs, click to edit/add: Vital Signs - 24 hr 06/16/25 09:56 06/16/25 09:59 06/16/25 10:23 Temperature 99.4 F Pulse Rate 93 Pulse Rate [Pulse Oximeter] 92 Respiratory Rate 28 H 15 Blood Pressure Blood Pressure [Ri ght Upper Arm] 177/80 H Pulse Oximetry 83 L 92 86 L Oxygen Delivery Me thod Room Air Nasal Cannula Nasal Cannula Oxygen Flow Rate 3 2 06/16/25 10:30 06/16/25 10:34 06/16/25 11:15 Temperature Pulse Rate 88 98 89 Pulse Rate [Pulse Oximeter] Respiratory Rate 12 14 Blood Pressure 146/91 H Blood Pressure [Ri ght Upper Arm] Pulse Oximetry 89 90 94 Oxygen Delivery Me thod Nasal Cannula Nasal Cannula Nasal Cannula Oxygen Flow Rate 3 3 3 06/16/25 11:30 06/16/25 11:51 06/16/25 12:00 Temperature Pulse Rate 85 85 Pulse Rate [Pulse Oximeter] Respiratory Rate 19 17 19 Blood Pressure 150/80 H Blood Pressure [Ri ght Upper Arm] Pulse Oximetry 93 94 Oxygen Delivery Me thod Nasal Cannula Nasal Cannula Nasal Cannula Oxygen Flow Rate 3 3 3 06/16/25 12:30 06/16/25 12:45 06/16/25 13:00 Temperature Pulse Rate 80 81 81 Pulse Rate [Pulse Oximeter] Respiratory Rate 17 12 15 Blood Pressure Blood Pressure [Ri ght Upper Arm] Pulse Oximetry 91 91 92 Oxygen Delivery Me thod Oxygen Flow Rate 06/16/25 13:15 06/16/25 13:21 06/16/25 13:22 Temperature Pulse Rate 82 83 80 Pulse Rate [Pulse Oximeter] Respiratory Rate 15 14 13 Blood Pressure 144/80 H Blood Pressure [Ri ght Upper Arm] Pulse Oximetry 90 91 91 Oxygen Delivery Me thod Room Air Oxygen Flow Rate 06/16/25 13:30 06/16/25 13:45 06/16/25 14:00 Temperature Pulse Rate 79 79 80 Pulse Rate [Pulse Oximeter] Respiratory Rate 12 13 15 Blood Pressure Blood Pressure [Ri ght Upper Arm] Pulse Oximetry 94 93 92 Oxygen Delivery Me thod Oxygen Flow Rate 06/16/25 14:15 06/16/25 14:30 06/16/25 14:45 Temperature Pulse Rate 79 78 81 Pulse Rate [Pulse Oximeter] Respiratory Rate 12 11 L 12 Blood Pressure Blood Pressure [Ri ght Upper Arm] Pulse Oximetry 93 92 91 Oxygen Delivery Me thod Oxygen Flow Rate 06/16/25 15:00 06/16/25 15:11 06/16/25 15:15 Temperature Pulse Rate 82 78 79 Pulse Rate [Pulse Oximeter] Respiratory Rate 19 12 13 Blood Pressure 138/74 Blood Pressure [Ri ght Upper Arm] Pulse Oximetry 93 92 92 Oxygen Delivery Me thod Nasal Cannula Oxygen Flow Rate 3 06/16/25 15:30 Temperature Pulse Rate 80 Pulse Rate [Pulse Oximeter] Respiratory Rate 16 Blood Pressure Blood Pressure [Ri ght Upper Arm] Pulse Oximetry 91 Oxygen Delivery Me thod Oxygen Flow Rate Course Vital Signs Vital signs: Initial Vital Signs Temperature 99.4 F 06/16/25 09:56 Temperature Source Temporal Artery Scan 06/16/25 09:56 Pulse Rate 92 06/16/25 09:56 Respiratory Rate 28 H 06/16/25 09:56 Blood Pressure 177/80 H 06/16/25 09:56 Blood Pressure Mean 112 H 06/16/25 09:56 Blood Pressure Position Sitting 06/16/25 09:56 Pulse Oximetry 83 L 06/16/25 09:56 Oxygen Delivery Method Room Air 06/16/25 09:56 Vital Signs Temperature 99.4 F 06/16/25 09:56 Pulse Rate 92 06/16/25 09:56 Respiratory Rate 28 H 06/16/25 09:56 Blood Pressure 177/80 H 06/16/25 09:56 Pulse Oximetry 83 L 06/16/25 09:56 Oxygen Delivery Method Room Air 06/16/25 09:56 Temperature 97.6 F 06/16/25 16:16 Pulse Rate 84 06/16/25 16:16 Respiratory Rate 20 06/16/25 16:16 Blood Pressure 149/86 H 06/16/25 16:16 Pulse Oximetry 94 06/16/25 16:16 Oxygen Delivery Method Nasal Cannula 06/16/25 16:16 Oxygen Flow Rate 3 06/16/25 16:16 Medications Administered Medications: Generic Name Dose Route Start Last Admin Trade Name Freq PRN Reason Stop Dose Admin Albuterol/Ipratropium 1 neb 06/16/25 17:00 06/16/25 18:12 Iprat-Albut 0.5-2.5 Mg/3 Ml Neb IH 1 neb QID MAXWELL Administration Azithromycin 500 mg 06/16/25 18:00 06/16/25 18:12 Azithromycin 250 Mg Tablet PO 500 mg Q24H MAXWELL Administration Discontinued Medications Generic Name Dose Route Start Last Admin Trade Name Freq PRN Reason Stop Dose Admin Acetaminophen 1,000 mg 06/16/25 11:23 06/16/25 12:17 Acetaminophen 500 Mg Tablet PO 06/16/25 11:24 1,000 mg ONCE ONE Administration Albuterol/Ipratropium 1 neb 06/16/25 10:13 06/16/25 10:17 Iprat-Albut 0.5-2.5 Mg/3 Ml [facility] 06/16/25 10:14 1 neb ONCE ONE Administration Albuterol/Ipratropium 1 [facility] 06/16/25 10:42 06/16/25 10:50 Iprat-Albut 0.5-2.5 Mg/3 Ml [facility] 06/16/25 10:43 1 neb ONCE ONE Administration Ceftriaxone Sodium 1 gm/ 100 mls @ 200 mls/hr 06/16/25 12:59 06/16/25 14:04 Sodium Chloride IVPB 06/16/25 13:28 Infused ONCE ONE Infusion Doxycycline Hyclate 100 mg/ 100 mls @ 100 mls/hr 06/16/25 12:59 06/16/25 15:01 Sodium Chloride IVPB 06/16/25 13:58 Infused ONCE ONE Infusion Oseltamivir Phosphate 75 mg 06/16/25 11:23 06/16/25 12:17 Oseltamivir Phosphate 75 Mg Capsule PO 06/16/25 11:24 75 mg ONCE ONE Administration Prednisone 60 mg 06/16/25 10:13 06/16/25 10:16 Prednisone 20 Mg Tablet PO 06/16/25 10:14 60 mg ONCE ONE Administration Medical Decision Making MDM Narrative Medical decision making narrative: Very pleasant, 79-year-old gentleman presenting to the ER today for shortness of breath. He has been sick for the past few days with cough, phlegm in his throat, and worsening shortness of breath for a couple of days. Differential is broad including influenza, COVID, pneumonia, COPD, asthma as well as cardiac causes or other pulmonary causes of shortness of breath. He is hypoxic to the 80s on room air but sats came up nicely with 2 L nasal cannula and he is now holding in the low to mid 90s. He is not showing signs of respiratory distress or fatigue to indicate that he is likely to tire out or require positive pressure ventilation or intubation at this time. I do think he requires hospitalization because of persistent hypoxia even after image interventions done here in the ER. Discussed with our hospitalist, Dr. Pablo who agrees to admit. He is a former smoker and does have a history of COPD from about 10 years ago but does not have any long-term controller meds does not had any flares for years. He does have coarse lung sounds with some wheezes and rales. We did administer nebs and steroids but really had no change in his lung sounds or and his breathing or oxygen sats. Given current prevalence in the community we did check trouble swab and he is positive for influenza A. Although he has been sick for several days and has outside the 48 hour window maximal benefit, since he is ill hypoxic from this influenza with Tamiflu Chest x-ray does show patchy ground-glass opacities which could be infectious or atelectatic. I suspect these are probably from influenza. However would be impossible to completely rule out a community-acquired pneumonia from bacteria. Will treat him with Rocephin and azithromycin here in the ER to cover for that possibility. Fortunately he is not tachycardic, hypotensive, or showing other sepsis physiology. Laboratory workup shows a white count of 4. Mild anemia with hemoglobin 13. Otherwise normal kidney function. And terminal proBNP is marginally elevated at 605 but chest x-ray does not really show any signs of pulmonary edema or pleural effusions. Screening EKG and troponin are normal. Lab Data Labs: Lab Results 06/16/25 06/16/25 06/16/25 Range/Units 10:00 11:23 11:55 WBC 4.09 L (4.50-11.00) K/uL RBC 4.19 L (4.30-5.90) m/uL Hgb 13.4 L (13.5-17.5) gm/dL Hct 44.2 (37.0-53.0) % MCV 106 H (80-100) fL MCH 32 (26-34) pg MCHC 30 L (32-36) gm/dL RDW Coeff of Juan Jose 12.7 (11.5-15.5) % Plt Count 160 (140-440) K/uL Neut % (Auto) 71.0 (42.0-72.0) % Lymph % (Auto) 17.1 L (20-44) % [place] % (Auto) 10.5 (0.0-11.0) % Eos % (Auto) 1.2 (0.0-7.0) % Baso % (Auto) 0.2 (0.0-3.0) % Neut # (Auto) 2.90 (1.7-7.0) K/uL Lymph # (Auto) 0.70 L (0.90-2.90) K/uL [place] # (Auto) 0.40 (0.00-0.90) K/UL Eos # (Auto) 0.00 (0.00-0.50) K/uL Baso # (Auto) 0.00 (0.00-0.30) K/uL Abs Immat Gran (auto) 0.00 (0.00-0.30) K/uL Imm/Tot Granulo (auto) 0.0 % Sodium 135 (135-149) mmol/L Potassium 4.4 (3.6-5.1) mmol/L Chloride 101 (96-114) mmol/L Carbon Dioxide 30 (20-32) mmol/L Anion Gap 4 L (7-15) mEq/L BUN 17 (7-30) mg/dL Creatinine 0.7 (0.5-1.5) mg/dL Estimated Creat Clear 56.05 Estimated GFR 93 ml/min Glucose 112 (60-115) mg/dL Lactate 0.9 (0.5-1.9) mmol/L Calcium 8.9 (8.4-10.6) mg/dL POC Troponin I High Sensi 15.1 (2.9-28.0) pg/mL NT-Pro-B Natriuret Pep 605 H (See Note) pg/mL SARS-CoV-2 (PCR) Negative SARS-CoV-2 (Negative) Influenza Type A (PCR) POSITIVE PCR FLU A A (Negative) Influenza Type B (PCR) Negative PCR FLU B (Negative) RSV (PCR) Negative PCR RSV (Negative) Imaging Data Chest x-ray: Attestation: I have reviewed the pertinent imaging results. My impression: Elevated left hemidiaphragm. No definite infiltrate Radiologist's impression: IMPRESSIONS: 1. Small lung volumes are present with patchy airspace opacities and bibasilar ground-glass densities noted. These findings can be seen with atelectasis and/or pneumonia. 2. A small sub pulmonic left pleural effusion is suspected. ECG Data Attestation: I personally reviewed and interpreted this ECG as follows: Interpretation: EKG obtained by nurses as triage protocol Sinus rhythm with sinus arrhythmia Rate 96 IL interval 164 Normal QRS axis. No pathologic Q-waves No ST segment elevation or depression. QTC 320, QTC 404 Discharge Plan Discharge Clinical Impression: Influenza A, Pneumonia, Hypoxia Patient Disposition: Admitted As Inpatient
--- NOTE | 2025-06-16 10:13 | CRLHL7_ITS ---
For Patients: As a result of the Century Cures Act, medical imaging exams and procedure reports are released immediately into your electronic medical record. You may view this report before your referring provider. If you have questions, please contact your health care provider. INDICATION: Cough, hypoxia, wheezing TECHNIQUE: Chest radiograph 2 views COMPARISON: None FINDINGS: Mediastinum: The mediastinum is normal in appearance. The heart silhouette is normal in size and morphology. Lung: Small lung volumes are present with patchy airspace opacities and bibasilar ground-glass densities noted. A small sub pulmonic left pleural effusion is suspected. No pneumothorax is identified. Bone and Soft tissue: Unremarkable. Moderate diffuse osteopenia is noted. IMPRESSIONS: 1. Small lung volumes are present with patchy airspace opacities and bibasilar ground-glass densities noted. These findings can be seen with atelectasis and/or pneumonia. 2. A small sub pulmonic left pleural effusion is suspected. Dictated by Anshu Reid MD @ 06/16/2025 12:27:31 PM Dictated by: Anshu Reid MD @ 06/16/2025 12:27:35 (Electronically Signed)
[2025-06-16] MEDS: IPRAT-ALBUT 0.5-2.5 MG/3 ML NEB 1 NEB IH ×4 (10:17→21:13)
[2025-06-16 10:46] LABS: PCR FLU A POSITIVE PCR FLU A (Negative); PCR FLU B Negative PCR FLU B (Negative); PCR RSV Negative PCR RSV (Negative); SARS PCR* Negative SARS-CoV-2 (Negative)
[2025-06-16 12:05] LABS: Hematocrit* 44.2 % (37.0-53.0); Hemoglobin* 13.4 gm/dL (13.5-17.5); Immature Granulocytes Abs Auto 0.00 K/uL (0.00-0.30); Immature Granulocytes Pct Auto 0.0 %; Lymphocytes Absolute Auto 0.70 K/uL (0.90-2.90); Mean Corpuscular HGB Conc 30 gm/dL (32-36); Mean Corpuscular Hemoglobin 32 pg (26-34); Mean Corpuscular Volume 106 fL (80-100); RDW Coefficient of Variation % 12.7 % (11.5-15.5); Red Blood Count* 4.19 m/uL (4.30-5.90); White Blood Count* 4.09 K/uL (4.50-11.00)
[2025-06-16] MEDS: ACETAMINOPHEN 500 MG TABLET 1000 MG PO (12:17)
[2025-06-16] MEDS: OSELTAMIVIR PHOSPHATE 75 MG CAPSULE PO ×2 (12:17→21:13)
[2025-06-16 12:22] LABS: Slide Review Reflex No
[2025-06-16 12:24] LABS: Chloride* 101 mmol/L (96-114); Potassium* 4.4 mmol/L (3.6-5.1); Sodium* 135 mmol/L (135-149)
[2025-06-16 12:27] LABS: Blood Urea Nitrogen* 17 mg/dL (7-30); Creatinine* 0.7 mg/dL (0.5-1.5); Est. Creatinine Clearance* 56.05; Estimated Glomerular Filt Rate 93 ml/min
[2025-06-16 12:28] LABS: Anion Gap 4 mEq/L (7-15); Calcium* 8.9 mg/dL (8.4-10.6); Carbon Dioxide* 30 mmol/L (20-32); Glucose* 112 mg/dL (60-115)
[2025-06-16 12:38] LABS: NT Pro B Type NatriureticPept* 605 pg/mL (See Note)
[2025-06-16 12:45] LABS: Lactate* 0.9 mmol/L (0.5-1.9)
[2025-06-16] MEDS: cefTRIAXone 1 GM in 0.9 % SODIUM CHLORIDE Mini-bag 100 ML IVPB (13:16)
[2025-06-16] MEDS: DOXYCYCLINE HYCLATE 100 MG in 0.9 % SODIUM CHLORIDE Mini-bag 100 ML IVPB (14:00)
--- NOTE | 2025-06-16 16:54 | P.IMHP_ITS ---
Assessment and Plan Assessment and plan (1) Influenzal pneumonia: Problem comment: Tamiflu, oxygen, antibiotics for community-acquired pneumonia Status: Acute (2) Hypoxic respiratory failure: Problem comment: Oxygen Status: Acute (3) Obesity: Problem comment: BMI is 37.9. At risk for respiratory complications Status: Acute (4) Mild chronic obstructive pulmonary disease: Problem comment: Quit smoking in 1983. Never treated for COPD. Will treat with nebulizers here. Hold steroids for now. Status: Acute Plan 79-year-old male with influenza a pneumonia causing hypoxic respiratory failure. He is admitted to the hospital for supplemental oxygen, ongoing monitoring for complications and treatment with Tamiflu. Total Time Spent Total Time Spent: Total time spent today is 65 minutes in reviewing NSAID records, coordination of care, discussing with patient and and other providers ongoing management of hypoxic respiratory failure and influenza Hospitalist- H&P: HPI History of Present Illness Date Seen: 06/16/25 Chief complaint: SOB Narrative: Geo Barrera is a 79 year old male with obesity and chronic low back pain admitted with 4 day history of illness due to influenza a. He was exposed to sick grandchildren on June 12 and shortly after that became ill. He has had cough, fever, dyspnea. In the last day or to he is found his legs to be quite weak and he is finding walking is difficult. He has had a poor appetite but has been able to eat. He is not having chest pain or abdominal pain. Bowel bladder function have been normal. He is on no chronic medications. He has a remote history of smoking having quit about 41 years ago. Chart indicates mild COPD but he has never and treated for COPD. He denies history of heart disease. Review of Systems Narrative: Review of systems is unremarkable except as noted above. Medical Decision Making Medical Decision Making Code Status: Full code During This Stay, Who Would You Like To Make Decisions For You In The Event You Are Unable To Make Them For Yourself?: His , Nu, is healthcare decision maker [facility] Medical History (Updated 06/16/25 @ 17:04 by Misael Pablo MD) Vitamin D deficiency (11/12/11) ?E55.9 - Vitamin D deficiency, unspecified (ICD-10) Spondylolisthesis at L4-L5 level (07/15/20) ?M43.16 - Spondylolisthesis, lumbar region (ICD-10) Mild chronic obstructive pulmonary disease (01/09/15) ?J44.9 - Chronic obstructive pulmonary disease, unspecified (ICD-10) Low testosterone (11/12/11) ?R79.89 - Other specified abnormal findings of blood chemistry (ICD-10) Low back pain (09/12/21) ?M54.50 - Low back pain, unspecified (ICD-10) Erectile dysfunction (01/09/15) ?N52.9 - Male erectile dysfunction, unspecified (ICD-10) Decreased libido (08/10/11) ?R68.82 - Decreased libido (ICD-10) Benign localized hyperplasia of prostate (09/21/18) ?N40.0 - Benign prostatic hyperplasia without lower urinary tract symptoms (ICD-10) Influenzal pneumonia ?J11.00 - Influenza due to unidentified influenza virus with unspecified type of pneumonia (ICD-10) Hypoxic respiratory failure ?J96.91 - Respiratory failure, unspecified with hypoxia (ICD-10) Obesity ?E66.9 - Obesity, unspecified (ICD-10) Family History (Updated 06/16/25 @ 17:01 by Misael Pablo MD) Brother Lung cancer Heart disease Father Lung cancer Mother Alzheimers disease Social History (Updated 06/16/25 @ 17:02 by Misael Pablo MD) Smoking Status: Former smoker What tobacco products do you use: cigarettes Smoking quit date/years: >15 years ago Meds Home Medications and Allergies Home Medications ?Medication ?Instructions ?Recorded ?Confirmed ?Type No Known Home Medications 12/18/2305/22 History Allergies Allergy/AdvReac Type Severity Reaction Status Date / Time No Known Drug Allergies Allergy Verified 01/09/25 15:17 Exam Narrative: Exam Narrative: He is alert and appears in no distress on supplemental oxygen. He is oriented to his circumstances and gives his own history. Oropharynx with small airway. Neck is supple without mass or adenopathy. Respirations with diffuse rhonchi greater at lung bases and upper lung long. No wheezing. No prolonged expiratory phase. Cardiovascular: S1, S2, regular rate and rhythm. Abdomen: Bowel sounds active. Abdomen is soft without tenderness or mass. Extremities are well perfused, warm to touch, good pulses. No skin rash. Const: Vital Signs, click to edit/add: Vital Signs - 24 hr 06/16/25 09:56 06/16/25 09:59 06/16/25 10:23 Temperature 37.4 C Pulse Rate 93 Pulse Rate [Pulse Oximeter] 92 Respiratory Rate 28 H 15 Blood Pressure Blood Pressure [Ri ght Upper Arm] 177/80 H Pulse Oximetry 83 L 92 86 L Oxygen Delivery Me thod Room Air Nasal Cannula Nasal Cannula Oxygen Flow Rate 3 2 06/16/25 10:30 06/16/25 10:34 06/16/25 11:15 Temperature Pulse Rate 88 98 89 Pulse Rate [Pulse Oximeter] Respiratory Rate 12 14 Blood Pressure 146/91 H Blood Pressure [Ri ght Upper Arm] Pulse Oximetry 89 90 94 Oxygen Delivery Me thod Nasal Cannula Nasal Cannula Nasal Cannula Oxygen Flow Rate 3 3 3 06/16/25 11:30 06/16/25 11:51 06/16/25 12:00 Temperature Pulse Rate 85 85 Pulse Rate [Pulse Oximeter] Respiratory Rate 19 17 19 Blood Pressure 150/80 H Blood Pressure [Ri ght Upper Arm] Pulse Oximetry 93 94 Oxygen Delivery Me thod Nasal Cannula Nasal Cannula Nasal Cannula Oxygen Flow Rate 3 3 3 06/16/25 12:30 06/16/25 12:45 06/16/25 13:00 Temperature Pulse Rate 80 81 81 Pulse Rate [Pulse Oximeter] Respiratory Rate 17 12 15 Blood Pressure Blood Pressure [Ri ght Upper Arm] Pulse Oximetry 91 91 92 Oxygen Delivery Me thod Oxygen Flow Rate 06/16/25 13:15 06/16/25 13:21 06/16/25 13:22 Temperature Pulse Rate 82 83 80 Pulse Rate [Pulse Oximeter] Respiratory Rate 15 14 13 Blood Pressure 144/80 H Blood Pressure [Ri ght Upper Arm] Pulse Oximetry 90 91 91 Oxygen Delivery Me thod Room Air Oxygen Flow Rate 06/16/25 13:30 06/16/25 13:45 06/16/25 14:00 Temperature Pulse Rate 79 79 80 Pulse Rate [Pulse Oximeter] Respiratory Rate 12 13 15 Blood Pressure Blood Pressure [Ri ght Upper Arm] Pulse Oximetry 94 93 92 Oxygen Delivery Me thod Oxygen Flow Rate 06/16/25 14:15 06/16/25 14:30 06/16/25 14:45 Temperature Pulse Rate 79 78 81 Pulse Rate [Pulse Oximeter] Respiratory Rate 12 11 L 12 Blood Pressure Blood Pressure [Ri ght Upper Arm] Pulse Oximetry 93 92 91 Oxygen Delivery Me thod Oxygen Flow Rate 06/16/25 15:00 06/16/25 15:11 06/16/25 15:15 Temperature Pulse Rate 82 78 79 Pulse Rate [Pulse Oximeter] Respiratory Rate 19 12 13 Blood Pressure 138/74 Blood Pressure [Ri [facility] [place] 2] Upper Arm] Pulse Oximetry 93 92 92 Oxygen Delivery Me thod Nasal Cannula Oxygen Flow Rate 3 06/16/25 15:30 Temperature Pulse Rate 80 Pulse Rate [Pulse Oximeter] Respiratory Rate 16 Blood Pressure Blood Pressure [Ri [facility] [place] 2] Upper Arm] Pulse Oximetry 91 Oxygen Delivery Me thod Oxygen Flow Rate Documenting provider has reviewed patient's vital signs: yes Hospitalist - H&P: Result Labs Labs: Short CBC 06/16/25 Range/Units 11:55 WBC 4.09 L (4.50-11.00) K/uL Hgb 13.4 L (13.5-17.5) gm/dL Hct 44.2 (37.0-53.0) % Plt Count 160 (140-440) K/uL [facility] 06/16/25 11:55 Sodium 135 Potassium 4.4 Chloride 101 Carbon Dioxide 30 BUN 17 Creatinine 0.7 Glucose 112 Calcium 8.9 Imaging Chest x-ray: Radiologist's impression: INDICATION: Cough, hypoxia, wheezing TECHNIQUE: Chest radiograph 2 views COMPARISON: None FINDINGS: Mediastinum: The mediastinum is normal in appearance. The heart silhouette is normal in size and morphology. Lung: Small lung volumes are present with patchy airspace opacities and bibasilar ground-glass densities noted. A small sub pulmonic left pleural effusion is suspected. No pneumothorax is identified. Bone and Soft tissue: Unremarkable. Moderate diffuse osteopenia is noted. IMPRESSIONS: 1. Small lung volumes are present with patchy airspace opacities and bibasilar ground-glass densities noted. These findings can be seen with atelectasis and/or pneumonia. 2. A small sub pulmonic left pleural effusion is suspected.
[2025-06-16] MEDS: AZITHROMYCIN 250 MG TABLET 500 MG PO (18:12)
[2025-06-16] MEDS: ENOXAPARIN 40 MG/0.4 ML INJ SUBCUT (21:13)
[2025-06-16] MEDS: SODIUM CHLORIDE 0.9 % (FLUSH) 10 ML SYRINGE 5 ML IVF (21:14)
[2025-06-17] VITALS (10 sets, daily range): BP systolic 127–158; BP diastolic 69–91; PULSE 68–86; RESP 18–20; TEMP 36.5–36.6; O2SAT 90–98
--- NOTE | 2025-06-17 05:57 | PC.NURSE ---
Pt a/o x4, pleasant and cooperative with cares. Pt ind in room, VSS on 2L NS. No pain reported during shift. pt slept throughout shift, continues pulse oximeter on. Pt sleeping comfortably in bed at this time
[2025-06-17 07:22] LABS: HCO3 VBG 30 mmol/L (21-28); PCO2 VBG 58 mmHG (40-50); PO2 VBG 42.5 mmHG (25-47); pH VBG 7.326 (7.32-7.43)
[2025-06-17 07:26] LABS: Chloride* 104 mmol/L (96-114); Potassium* 4.8 mmol/L (3.6-5.1); Sodium* 139 mmol/L (135-149)
[2025-06-17 07:27] LABS: Anion Gap 7 mEq/L (7-15); Carbon Dioxide* 28 mmol/L (20-32); Glucose* 134 mg/dL (60-115)
[2025-06-17 07:30] LABS: Hematocrit* 41.4 % (37.0-53.0); Hemoglobin* 12.7 gm/dL (13.5-17.5); Immature Granulocytes Abs Auto 0.00 K/uL (0.00-0.30); Immature Granulocytes Pct Auto 0.0 %; Mean Corpuscular HGB Conc 31 gm/dL (32-36); Mean Corpuscular Hemoglobin 32 pg (26-34); Mean Corpuscular Volume 104 fL (80-100); RDW Coefficient of Variation % 12.4 % (11.5-15.5); Red Blood Count* 3.97 m/uL (4.30-5.90); White Blood Count* 3.60 K/uL (4.50-11.00)
[2025-06-17 07:31] LABS: Lymphocytes Absolute Auto 0.60 K/uL (0.90-2.90); Slide Review Reflex No
[2025-06-17 07:44] LABS: Blood Urea Nitrogen* 22 mg/dL (7-30); Calcium* 8.6 mg/dL (8.4-10.6); Creatinine* 0.6 mg/dL (0.5-1.5); Est. Creatinine Clearance* 56.05; Estimated Glomerular Filt Rate 97 ml/min
[2025-06-17] MEDS: OSELTAMIVIR PHOSPHATE 75 MG CAPSULE PO ×2 (09:05→20:46)
[2025-06-17] MEDS: cefTRIAXone 1 GM in 0.9 % SODIUM CHLORIDE Mini-bag 100 ML IVPB (09:05)
[2025-06-17] MEDS: IPRAT-ALBUT 0.5-2.5 MG/3 ML NEB 1 NEB IH ×4 (09:05→20:46)
[2025-06-17] MEDS: SODIUM CHLORIDE 0.9 % (FLUSH) 10 ML SYRINGE 5 ML IVF ×2 (09:06→20:46)
--- NOTE | 2025-06-17 15:19 | P.IMPN_ITS ---
Assessment and Plan Assessment and plan (1) Influenzal pneumonia: Problem comment: Tamiflu, oxygen, antibiotics for community-acquired pneumonia Status: Acute (2) Hypoxic respiratory failure: Problem comment: Oxygen supplementation Decreasing oxygen needs Anticipate condition improvement over time hopefully such that he does not require oxygen supplementation at time of discharge Status: Acute (3) Obesity: Problem comment: BMI is 37.9. At risk for respiratory complications Status: Acute (4) Mild chronic obstructive pulmonary disease: Problem comment: Quit smoking in 1983. Never treated for COPD. Will treat with nebulizers here. Hold steroids for now. Status: Acute (5) Community acquired pneumonia: Problem comment: Secondary to influenza Continue with ceftriaxone and azithromycin Status: Acute Plan 1. Reviewed impression, plans, recommendations with patient and his 2. Answered his and her questions to their satisfaction 3. Patient and are agreeable to above stated plans and recommendations Total Time Spent Total Time Spent: 40 minutes Subjective Date Seen: 06/17/25 Interval history: Admission history of present illness: ?79 year old male with obesity and chronic low back pain admitted with 4 day history of illness due to influenza a. He was exposed to sick grandchildren on June 12 and shortly after that became ill. He has had cough, fever, dyspnea. In the last day or to he is found his legs to be quite weak and he is finding walking is difficult. He has had a poor appetite but has been able to eat. He is not having chest pain or abdominal pain. Bowel bladder function have been normal. He is on no chronic medications. He has a remote history of smoking having quit about 41 years ago. Chart indicates mild COPD but he has never and treated for COPD. He denies history of heart disease.? 06/17/2025, hospital day 2. Overall he is feeling vastly improved. Continues to require oxygen supplementation at 1 liter/minute via nasal cannula continuously to maintain resting oxygen saturation values greater than 88%. Tolerating increased activity. Cough and dyspnea vastly improved. Appetite is normalizing. Exam Narrative: Exam Narrative: Examined patient his hospital room. Appears comfortable no acute distress. On oxygen at 1 liter/minute via nasal cannula with resting oxygen saturation values of 89-92%. Alert and oriented x4. Lungs with scattered rhonchi, does not clear with coughing. End inspiratory rales left base. No wheezing. Heart tones with regular rhythm, normal S1-S2, without murmur, gallop, rub. Abdomen with active bowel sounds, is soft, nontender. Extremities without edema. Independent with transfers, station, gait. No focal motor neurologic deficits. Skin is intact. Const: Vital Signs, click to edit/add: Vital Signs - 24 hr 06/16/25 15:30 06/16/25 16:16 06/16/25 16:30 Temperature 36.4 C Pulse Rate 80 Pulse Rate [Pulse Oximeter] 84 Respiratory Rate 16 20 20 Blood Pressure [Le ft Arm] 149/86 H Pulse Oximetry 91 94 91 Oxygen Delivery Me thod Nasal Cannula Nasal Cannula Oxygen Flow Rate 3 2 06/16/25 19:00 06/16/25 23:00 06/16/25 23:00 Temperature 36.6 C 36.6 C Pulse Rate Pulse Rate [Pulse Oximeter] 86 82 82 Respiratory Rate 22 20 20 Blood Pressure [Le ft Arm] 135/76 135/80 Pulse Oximetry 93 93 Oxygen Delivery Me thod Nasal Cannula Room Air Oxygen Flow Rate 2 06/16/25 23:00 06/17/25 03:00 06/17/25 07:40 Temperature Pulse Rate Pulse Rate [Pulse Oximeter] 82 68 Respiratory Rate 20 20 20 Blood Pressure [Le ft Arm] 142/91 H Pulse Oximetry 93 98 Oxygen Delivery Me thod Nasal Cannula Nasal Cannula Oxygen Flow Rate 2 2 06/17/25 07:45 06/17/25 07:45 06/17/25 11:50 Temperature 36.6 C 36.5 C Pulse Rate Pulse Rate [Pulse Oximeter] 68 73 Respiratory Rate 20 20 18 Blood Pressure [Le ft Arm] 127/69 138/78 Pulse Oximetry 92 94 90 Oxygen Delivery Me thod Nasal Cannula Nasal Cannula Nasal Cannula Oxygen Flow Rate 2 2 2 06/17/25 15:00 06/17/25 15:15 06/17/25 15:15 Temperature 36.5 C Pulse Rate Pulse Rate [Pulse Oximeter] 73 73 Respiratory Rate 18 18 18 Blood Pressure [Le ft Arm] 130/72 Pulse Oximetry 90 96 Oxygen Delivery Me thod Nasal Cannula Nasal Cannula Oxygen Flow Rate 2 2 Labs Labs: Laboratory Results - last 24 hr 06/17/25 06:10 WBC 3.60 L RBC 3.97 L Hgb 12.7 L Hct 41.4 MCV 104 H MCH 32 MCHC 31 L RDW Coeff of Juan Jose 12.4 Plt Count 167 Neut % (Auto) 69.2 Lymph % (Auto) 17.2 L [place] % (Auto) 13.6 H Eos % (Auto) 0.0 Baso % (Auto) 0.0 Neut # (Auto) 2.50 Lymph # (Auto) 0.60 L [place] # (Auto) 0.50 Eos # (Auto) 0.00 Baso # (Auto) 0.00 Abs Immat Gran (auto) 0.00 Imm/Tot Granulo (auto) 0.0 VBG pH 7.326 VBG pCO2 58 H VBG pO2 42.5 VBG HCO3 30 H Sodium 139 Potassium 4.8 Chloride 104 Carbon Dioxide 28 Anion Gap 7 BUN 22 Creatinine 0.6 Estimated Creat Clear 56.05 Estimated GFR 97 Glucose 134 H Calcium 8.6 Imaging Chest x-ray: Attestation: I have reviewed the pertinent imaging results. Radiologist's impression: IMPRESSIONS: 1. Small lung volumes are present with patchy airspace opacities and bibasilar ground-glass densities noted. These findings can be seen with atelectasis and/or pneumonia. 2. A small sub pulmonic left pleural effusion is suspected.
[2025-06-17] MEDS: AZITHROMYCIN 250 MG TABLET 500 MG PO (17:55)
--- NOTE | 2025-06-17 18:36 | PC.NURSE ---
End of shift. pt has been very pleasant. he is alert and orientated x4. . Pt ind in room. he was on 2L and later 1L and he is now on RA Sao2 is 90-93%. No pain reported. he is eating, drinking and voiding. he is hoping to go home tomorrow.
[2025-06-17] MEDS: ENOXAPARIN 40 MG/0.4 ML INJ SUBCUT (20:46)
[2025-06-18 02:24] VITALS: O2SAT 77
[2025-06-18 02:25] VITALS: O2SAT 91
[2025-06-18 03:00] VITALS: BP 147/90; PULSE 72; RESP 20; TEMP 36.7; O2SAT 95
--- NOTE | 2025-06-18 05:34 | PC.NURSE ---
Pt a/o x4, pleasant and cooperative with cares. pt on RA at beginning of shift, later on 2l NC. Pt remained >90% on 2l. Pt got up once to void but slept throughout shift. Pt reports no pain. Pt is awake sitting in bed comfortably watching TV at this time.
[2025-06-18 06:56] LABS: Hematocrit* 40.4 % (37.0-53.0); Hemoglobin* 12.8 gm/dL (13.5-17.5); Immature Granulocytes Pct Auto 0.2 %; Mean Corpuscular HGB Conc 32 gm/dL (32-36); Mean Corpuscular Hemoglobin 32 pg (26-34); Mean Corpuscular Volume 101 fL (80-100); RDW Coefficient of Variation % 12.7 % (11.5-15.5); Red Blood Count* 3.99 m/uL (4.30-5.90); White Blood Count* 4.20 K/uL (4.50-11.00)
[2025-06-18 07:02] LABS: Immature Granulocytes Abs Auto 0.00 K/uL (0.00-0.30); Lymphocytes Absolute Auto 1.40 K/uL (0.90-2.90); Slide Review Reflex No
[2025-06-18 07:11] LABS: Chloride* 102 mmol/L (96-114); Potassium* 4.8 mmol/L (3.6-5.1); Sodium* 139 mmol/L (135-149)
[2025-06-18 07:14] LABS: Anion Gap 2 mEq/L (7-15); Blood Urea Nitrogen* 21 mg/dL (7-30); Calcium* 9.3 mg/dL (8.4-10.6); Carbon Dioxide* 35 mmol/L (20-32); Creatinine* 0.8 mg/dL (0.5-1.5); Est. Creatinine Clearance* 56.05; Estimated Glomerular Filt Rate 89 ml/min; Glucose* 101 mg/dL (60-115)
[2025-06-18 07:59] VITALS: BP 163/87; PULSE 81; RESP 18; TEMP 36.5; O2SAT 94
[2025-06-18 08:00] VITALS: RESP 18; O2SAT 94
[2025-06-18] MEDS: IPRAT-ALBUT 0.5-2.5 MG/3 ML NEB 1 NEB IH (08:30)
[2025-06-18] MEDS: cefTRIAXone 1 GM in 0.9 % SODIUM CHLORIDE Mini-bag 100 ML IVPB (08:30)
[2025-06-18] MEDS: OSELTAMIVIR PHOSPHATE 75 MG CAPSULE PO (08:30)
[2025-06-18] MEDS: SODIUM CHLORIDE 0.9 % (FLUSH) 10 ML SYRINGE 5 ML IVF (08:31)
[2025-06-18 10:59] VITALS: BP 172/86; PULSE 70; RESP 18; TEMP 36.6; O2SAT 93
--- NOTE | 2025-06-18 11:24 | P.DS_ITS ---
DS: Providers Provider Date Seen: 06/18/25 Date of admission: 06/16/25 15:49 Primary care physician: ALEXANDRA LEROY DO Admitting Clinician: Erickson Hancock MD Attending Physician on discharge: Savannah Valencia [facility], PA-C [facility] Date of Discharge: 06/18/25 DS: Diagnosis Discharge Diagnosis (1) Influenzal pneumonia: Status: Acute Problem details: Tamiflu, oxygen, antibiotics for community-acquired pneumonia (2) Hypoxic respiratory failure: Status: Resolved Problem details: Resolve prior to discharge (3) Obesity: Status: Acute Problem details: BMI is 37.9. At risk for respiratory complications (4) Mild chronic obstructive pulmonary disease: Status: Acute Problem details: Quit smoking in 1983. Never treated for COPD. Will treat with nebulizers here. Hold steroids for now. (5) Community acquired pneumonia: Status: Acute Problem details: Secondary to influenza Continue with ceftriaxone and azithromycin during hospital course, discharged on oral doxycycline DS: Summary Hospital Course Hospital Course: Admitted with acute hypoxic respiratory failure in setting of influenza a and community-acquired pneumonia. Will complete course of oral antibiotics in addition to those IV antibiotics he received during hospital course. Close outpatient follow-up with PCP for resolution. Status at Discharge Functional status at discharge: independent ambulation Overall status at discharge: patient is progressing back to baseline Time Spent with Patient Time attestation: Total time spent providing and/or coordinating discharge services: Time spent: Greater than 30 minutes Exam Narrative: Exam Narrative: PHYSICAL EXAM General: Pleasant, conversant, NAD Cardiovascular: RRR Pulmonary: No dyspnea on room air Neurological: Alert, answering questions appropriately Skin: Warm, dry. Const: Vital Signs, click to edit/add: Vital Signs - 24 hr 06/17/25 11:50 06/17/25 15:00 06/17/25 15:15 Temperature 97.7 F Pulse Rate [Pulse Oximeter] 73 73 Respiratory Rate 18 18 18 Blood Pressure [Le ft Arm] 138/78 Pulse Oximetry 90 90 Oxygen Delivery Me thod Nasal Cannula Nasal Cannula Oxygen Flow Rate 2 2 06/17/25 15:15 06/17/25 19:00 06/17/25 22:41 Temperature 97.7 F 97.8 F Pulse Rate [Pulse Oximeter] 73 86 86 Respiratory Rate 18 20 20 Blood Pressure [Le ft Arm] 130/72 150/82 H Pulse Oximetry 96 90 Oxygen Delivery Me thod Nasal Cannula Nasal Cannula Oxygen Flow Rate 2 06/17/25 22:42 06/17/25 23:00 06/18/25 02:24 Temperature 97.7 F Pulse Rate [Pulse Oximeter] 76 Respiratory Rate 20 Blood Pressure [Le ft Arm] 158/80 H Pulse Oximetry 90 90 77 L Oxygen Delivery Me thod Room Air Room Air Room Air Oxygen Flow Rate 06/18/25 02:25 06/18/25 03:00 06/18/25 07:59 Temperature 98.0 F 97.7 F Pulse Rate [Pulse Oximeter] 72 81 Respiratory Rate 20 18 Blood Pressure [Le ft Arm] 147/90 H 163/87 H Pulse Oximetry 91 95 94 Oxygen Delivery Me thod Nasal Cannula Nasal Cannula Room Air Oxygen Flow Rate 2 2 06/18/25 08:00 06/18/25 10:59 Temperature 98 F Pulse Rate [Pulse Oximeter] 70 Respiratory Rate 18 18 Blood Pressure [Le ft Arm] 172/86 H Pulse Oximetry 94 93 Oxygen Delivery Me thod Room Air Room Air Oxygen Flow Rate DS: Data Data Completed and Pending Labs on day of discharge: Labs from last 24 hours 06/18/25 05:55 WBC 4.20 L RBC 3.99 L Hgb 12.8 L Hct 40.4 MCV 101 H MCH 32 MCHC 32 RDW Coeff of Juan Jose 12.7 Plt Count 190 Neut % (Auto) 54.3 Lymph % (Auto) 33.6 [place] % (Auto) 10.5 Eos % (Auto) 1.2 Baso % (Auto) 0.2 Neut # (Auto) 2.30 Lymph # (Auto) 1.40 [place] # (Auto) 0.40 Eos # (Auto) 0.10 Baso # (Auto) 0.00 Abs Immat Gran (auto) 0.00 Imm/Tot Granulo (auto) 0.2 Sodium 139 Potassium 4.8 Chloride 102 Carbon Dioxide 35 H Anion Gap 2 L BUN 21 Creatinine 0.8 Estimated Creat Clear 56.05 Estimated GFR 89 Glucose 101 Calcium 9.3 Preliminary micro results at discharge 06/16/25 12:35 Blood Culture - Preliminary Blood NO GROWTH AFTER 24 HOURS 06/16/25 11:55 Blood Culture - Preliminary Blood NO GROWTH AFTER 24 HOURS Imaging Chest x-ray: Attestation: I have reviewed the pertinent imaging results. Radiologist's impression: Mediastinum: The mediastinum is normal in appearance. The heart silhouette is normal in size and morphology. Lung: Small lung volumes are present with patchy airspace opacities and bibasilar ground-glass densities noted. A small sub pulmonic left pleural effusion is suspected. No pneumothorax is identified. Bone and Soft tissue: Unremarkable. Moderate diffuse osteopenia is noted. IMPRESSIONS: 1. Small lung volumes are present with patchy airspace opacities and bibasilar ground-glass densities noted. These findings can be seen with atelectasis and/or pneumonia. 2. A small sub pulmonic left pleural effusion is suspected. Discharge Plan Discharge Disposition: Home, Self-Care Date of Admission: 06/16/25 15:49 Attending Provider on Discharge: Savannah Valencia Primary Care Provider: ALEXANDRA LEROY Condition: Improved Anticipated Discharge Date/Time: 06/18/25 11:15 Discharge Medications: New oseltamivir 75 mg Capsule 75 mg PO BID 3 Days Qty: 6 0RF doxycycline hyclate 100 mg capsule 100 mg PO BID Qty: 10 0RF Discharge Orders: Discharge Order (Routine); Ordered 06/18/25 Ordered By: Savannah Valencia Patient Education: Doxycycline (By mouth), Oseltamivir (By mouth) (Tamiflu), Influenza (DC) Additional Instructions: Continue tamiflu for influenza and doxycycline for pneumonia. Rest and stay hydrated. Activity Level: Activity as Tolerated Discharge Diet: Regular Follow Up Appointments: ALEXANDRA LEROY DO [Primary Care Provider, [facility]] - 06/26/25 2:55 pm Referral Note: [facility] for hospital follow[facility]up. [email or web address] Info Instructions
--- NOTE | 2025-06-18 13:58 | PC.NURSE ---
Pt discharged @ 1253 via wheelchair, accompanied by . Going back to home. IV removed. Final room check complete. Pt reported understanding of discharge instructions. Discharge and belonging forms signed.
== END 2025-06-18 12:53 | disposition home or self-care (01) | DRG 193 ==
LOC: ED 14:49 → MEDSURG 15:48
PROVIDERS: Family Medicine; Admitting Provider Emergency Medicine; Emergency Provider Emergency Medicine; PCP Student in an Organized Health Care Education/Training Program; Visit Provider Emergency Medicine
DX: J10.00 Influenza due to other identified influenza virus with unspecified type of pneumonia (principal); J96.01 Acute respiratory failure with hypoxia; J44.0 Chronic obstructive pulmonary disease with (acute) lower respiratory infection; E55.9 Vitamin D deficiency, unspecified; E66.9 Obesity, unspecified; Z68.37 Body mass index [BMI] 37.0-37.9, adult; N40.0 Benign prostatic hyperplasia without lower urinary tract symptoms; Z87.891 Personal history of nicotine dependence
CPT/HCPCS: 36415; 71046; 80048; 82803; 83605; 83880; 84484; 85025; 87040; 87631; 93005; 94664; 94761; 99284; 99285; A9270; J0696; J1650; J7512